=== PATIENT | female | born 1980 | race Caucasian/White ===

== ENCOUNTER 2020-07-13 09:30 | Emergency (ER) | payer OTHER, SELFPAY ==
--- NOTE | ~2020-07-13 | XR_ITS ---
EXAMINATION: XR LUMBAR SPINE CLINICAL INFORMATION: Pain COMPARISON: None TECHNIQUE: Frontal lateral and coned-down L5-S1 frontal lateral FINDINGS: Five [id number] lumbar vertebrae were identified maintaining normal height, there is anterior spondylolisthesis of L5 on S1, there is probably chronic fractures of the pedicle of L5 spondylolysis.. Narrowing of disc spaces L4-L5 and L5-S1 suggests underlying degenerative disc disease. Paravertebral soft tissues are unremarkable. There are radiolucencies, most likely superimposed bowel gas.. No radiographic evidence of osteolytic or osteoblastic lesions. XR/XR lumbar spine 2-3V IMPRESSION: Spondylolysis of the pedicle of L5. Anterior spondylolisthesis of L5 on S1. Narrowing of intervertebral disc spaces suggest underlying degenerative disc disease.
[2020-07-13 09:31] VITALS: BP 193/93; PULSE 78; RESP 18; TEMP 36.9; O2SAT 94; BMI 51.5
[2020-07-13] MEDS: Lidocaine 4 % Patch ADH..PATCH 1 PATCH TRANSDERMA (11:02)
[2020-07-13 11:11] LABS: MANUAL DIFF FLAG NO
[2020-07-13 11:12] LABS: Basophils Absolute Auto 0.1 X10*3/uL (0.0-0.2); Eosinophils Percent Auto 9.1 % (0-4); Imm Gran Abs Auto 0.03 X10*3/uL (0.00-0.03); Imm Gran Pct Auto 0.3 % (0.0-0.4); Lymphocytes Absolute Auto 3.4 X10*3/uL (1.2-4.9); Mean Corpuscular HGB Conc 31.8 g/dl (31.0-35.0); Mean Corpuscular Hemoglobin 29.1 pg (27.0-33.0); Mean Corpuscular Volume 91.5 fL (80-98); Mean Platelet Volume 9.8 fL (9.4-12.3); Monocytes Absolute Auto 0.6 X10*3/uL (0.1-1.2); Monocytes Percent Auto 5.2 % (2-11); Neutrophils Absolute Auto 6.1 X10*3/uL (2.0-8.3); Neutrophils Percent Auto 54.4 % (45-73); Platelet Count 295 X10*3/uL (160-400); Red Blood Count 4.81 X10*6/uL (4.20-5.50); Red Cell Distribution Width 15.3 % (11.0-16.0); White Blood Count 11.2 X10*3/uL (4.8-10.8)
[2020-07-13 11:14] LABS: Glucose Urine UA NEG (NEG); Leukocyte Esterase Urine NEG (NEG); Nitrite Urine NEG (NEG); Specific Gravity - Urine >= 1.030 (1.005-1.025); Urine Blood NEG (NEG); Urine Ketones NEG (NEG); Urine Protein NEG (NEG-TRACE)
[2020-07-13 11:17] LABS: Appearance Urine HAZY; Color Urine YELLOW; UPreg QC Valid YES; Urine Pregnancy NEGATIVE (NEGATIVE)
[2020-07-13 11:21] LABS: RBC Urine 0 /HPF (0); Squamous Epithelial Cell Urine 1+ /LPF; WBC Urine 0 /HPF (0-4)
[2020-07-13 11:30] LABS: Amphetamine Screen Urine Not Detected (Not Detect); Barbiturates, Urine Not Detected (Not Detect); Benzodiazepines Screen Urine Not Detected (Not Detect); Cannabinoid Screen Urine Not Detected (Not Detect); Cocaine Screen Urine Not Detected (Not Detect); Opiate Screen Urine POSITIVE (Not Detect); Phencyclidine Screen Urine Not Detected (Not Detect)
[2020-07-13 11:44] LABS: Alanine Aminotransferase 22 U/L (0-31); Albumin Level 4.3 g/dL (3.5-5.0); Alkaline Phosphatase 102 U/L (39-117); Anion Gap 13 (12-20); Aspartate Amino Transferase 17 U/L (5-31); Bilirubin Total 0.3 mg/dL (0.0-1.0); Blood Urea Nitrogen 9 mg/dL (9-16); Calcium 9.3 mg/dL (8.4-10.2); Carbon Dioxide 33 mmol/L (22-29); Chloride 98 mmol/L (96-108); Creatinine Clr Calc Pharmacy 117.1; Estimated Glomerular Filt Rate > 60; Glucose Random 129 mg/dL (60-115); Potassium 4.5 mmol/L (3.3-5.1); Sodium 139 mmol/L (135-145); Total Protein 7.3 g/dL (6.5-8.0)
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
== END 2020-07-13 12:32 | disposition home or self-care (01) ==
PROVIDERS: Nurse Practitioner Primary Care; Emergency Provider Emergency Medicine; PCP Internal Medicine
DX: S39.012A Strain of muscle, fascia and tendon of lower back, initial encounter (principal); X58.XXXA Exposure to other specified factors, initial encounter; Y93.9 Activity, unspecified; Y92.9 Unspecified place or not applicable; Y99.9 Unspecified external cause status; Z79.899 Other long term (current) drug therapy
CPT/HCPCS: 36415; 72100; 80053; 80307; 81001; 81025; 85025; 99283

== ENCOUNTER 2020-09-20 23:26 | Inpatient (IN) | payer OTHER, SELFPAY ==
--- NOTE | ~2020-09-20 | XR_ITS ---
EXAMINATION: CHEST 1 VIEW CLINICAL INFORMATION: Shortness of breath. COMPARISON: 03/01/2018. TECHNIQUE: An AP view of the chest is provided. FINDINGS: The cardiac silhouette is not enlarged. The mediastinal and hilar contours are unremarkable. There are neither pleural effusions nor pneumothoraces. There are no consolidations. The osseous structures are stable. XR/XR chest 1V IMPRESSION: No evidence for acute disease.
--- NOTE | ~2020-09-20 | CT_ITS ---
EXAMINATION: CT PULMONARY EMBOLISM STUDY CLINICAL INFORMATION: Hypoxia. COMPARISON: None. TECHNIQUE: Contiguous helical images of the chest were obtained following the administration of IV contrast. Multiplanar reconstructions were performed. MIPS were obtained and reviewed. DLP: 524 mGy-cm. CONTRAST: 65 mL of Omnipaque 350 were administered without incident. FINDINGS: The heart is of normal size. There is no pericardial effusion. The great vessels are unremarkable. Specifically, there is no pulmonary arterial filling defect. There is no CT evidence for pulmonary embolism. There are no chest wall masses. Review of lung windows demonstrates that there are neither pleural effusions nor pneumothoraces. There are no consolidations. ((. There are no pulmonary parenchymal nodules. Limited evaluation of the upper abdomen demonstrates that the liver is of normal size and attenuation without focal lesions. Normal adrenal glands are identified. CT/CT angio chest PE protocol IMPRESSION: No CT evidence for pulmonary embolism. Automated exposure control (Care Dose) Adjustment of the mA and/or kv according to patient size (this includes techniques or standardized protocols for targeted exams where dose is matched to indication / reason for exam; i.e. extremities or head).
[2020-09-20 23:32] VITALS: BP 132/80; BP 163/97; PULSE 103; PULSE 105; RESP 20; O2SAT 80; O2SAT 96; BMI 51.5
--- NOTE | 2020-09-20 23:34 | ECG_ITS ---
Test Reason : ASTHMA Blood Pressure : / mmHG Vent. Rate : 101 BPM Atrial Rate : 101 BPM P-R Int : 134 ms QRS Dur : 084 ms QT Int : 342 ms P-R-T Axes : 066 004 046 degrees QTc Int : 443 ms Sinus tachycardia Minimal voltage criteria for LVH, may be normal variant Borderline ECG When compared to the previous EKG of No significant changes seen Referred By: Rona Wilkerson Electronically Signed By:Yandel Shetty
[2020-09-20] MEDS: Albuterol Sulfate (0.083%) 2.5 MG/3 ML VIAL.NEB 10 MG INHALE (23:42)
[2020-09-20 23:43] VITALS: PULSE 90; O2SAT 97
[2020-09-21] VITALS (15 sets, daily range): BP systolic 109–138; BP diastolic 54–77; PULSE 77–104; RESP 10–94; TEMP 36.6; O2SAT 77–98
[2020-09-21 00:08] LABS: Basophils Absolute Auto 0.1 X10*3/uL (0.0-0.2); Basophils Percent Auto 0.5 % (0-2); Eosinophils Absolute Auto 1.7 X10*3/uL (0.0-0.4); Eosinophils Percent Auto 9.6 % (0-4); Hematocrit 42.2 % (37-47); Hemoglobin 13.2 g/dl (12.0-16.0); Imm Gran Abs Auto 0.07 X10*3/uL (0.00-0.03); Imm Gran Pct Auto 0.4 % (0.0-0.4); Lymphocytes Absolute Auto 3.6 X10*3/uL (1.2-4.9); Lymphocytes Percent Auto 20.2 % (20-40); Mean Corpuscular HGB Conc 31.3 g/dl (31.0-35.0); Mean Corpuscular Hemoglobin 29.5 pg (27.0-33.0); Mean Corpuscular Volume 94.2 fL (80-98); Mean Platelet Volume 9.4 fL (9.4-12.3); Monocytes Absolute Auto 0.8 X10*3/uL (0.1-1.2); Monocytes Percent Auto 4.7 % (2-11); Neutrophils Absolute Auto 11.5 X10*3/uL (2.0-8.3); Neutrophils Percent Auto 64.6 % (45-73); Platelet Count 256 X10*3/uL (160-400); Red Blood Count 4.48 X10*6/uL (4.20-5.50); Red Cell Distribution Width 15.1 % (11.0-16.0); White Blood Count 17.7 X10*3/uL (4.8-10.8)
[2020-09-21 00:09] LABS: MANUAL DIFF FLAG NO
[2020-09-21 00:18] LABS: Venous Blood Gas Refer to POC result
[2020-09-21 00:18] LABS: VBG Base Excess 5.7 mmol/L; VBG HCO3 35 mmol/L (22-26); VBG pCO2 73 mmHg; VBG pH 7.28 (7.32-7.43); VBG pO2 174 mmHg
[2020-09-21 00:28] LABS: Lactic Acid 0.7 mmol/L (0.5-2.0)
--- NOTE | 2020-09-21 00:30 | ED.ASTHMA ---
HPI - Asthma General Chief Complaint: Asthma Stated Complaint: sob Time Seen by Provider: 09/20/20 23:34 Source: patient and EMS Mode of arrival: EMS Limitations: no limitations History of Present Illness HPI Narrative: Patient comes emergency room complaining of shortness of breath. Patient states the difficulty breathing started today. Per EMS, patient was 66% on room air at home, she received 1 DuoNeb, oxygen saturation improved to 96%. On arrival to the emergency room, on room air patient saturation was 78% on room air, speaking in short sentences. Patient states that she has asthma, never been diagnosed with COPD. Patient denies taking any steroids or antibiotics recently. MD complaint: asthma attack Related Data Previous Rx's Medication Instructions Recorded cyclobenzaprine 5 mg tablet 5 mg PO BEDTIME PRN 30 Days #30 tab 08/23/20 lidocaine 5 % topical patch 1 patch TOPICAL .q 12H PRN 30 Days 08/23/20 #30 ea albuterol sulfate 90 mcg/actuation 1 puff INHALATION QID PRN 30 Days 09/12/20 aerosol inhaler #18 g naproxen 500 mg tablet 500 mg PO BID PRN #60 tab 09/16/20 ProAir HFA 90 mcg/actuation 1 inh INHALATION QID PRN 30 Days 09/18/20 aerosol inhaler #8.5 g NS Allergies Allergy/AdvReac Type Severity Reaction Status Date / Time No Known Allergies Allergy Verified 08/23/20 15:46 [No Known Allergies*] Review of Systems Review of Systems: Constitutional : No Weight loss, No Fever, No Chills, No Night Sweats, No Fatigue, No Malaise ENT/Mouth : No Hearing loss, No Ear Pain, No Nasal Congestion, No Sinus Pain, No Hoarseness, No sore throat, No Rhinorrhea, No Swallowing Difficulty Eyes: No Eye Pain, No Swelling, No Redness, No Foreign Body, No Discharge, No Vision Changes Cardiovascular : No Chest Pain, no palpitations, has chronic lower extremity edema at baseline Respiratory : Complaining of cough, wheezing, dyspnea Gastrointestinal : No Nausea, No Vomiting, No Diarrhea, No Constipation, No abdominal Pain, No Hematochezia, No Melena Genitourinary : no irregular bleeding, No Dysuria, No Urinary Frequency, No Hematuria, No Urinary Incontinence, No Urgency, No Flank Pain, No Urinary Flow Changes, No Hesitancy Musculoskeletal : No joint pain, No Myalgias, No Joint Swelling Skin : No Skin Lesions, No rash Neuro : No Weakness, No Numbness, No Paresthesias, No Loss of Consciousness, No Dizziness, No Headache Psych : No Anxiety/Panic, No Depression, No SI/HI/AH/VH, No Social Issues, Heme/Lymph: No Bruising, No Bleeding,No Lymphadenopathy Endocrine : No Polyuria, No Polydipsia, No Temperature Intolerance [facility] Past Medical History Medical History (Updated 09/21/20 @ 04:53 by Rona Wilkerson MD) Asthma Chronic back pain Lumbago syndrome Methadone use Social History Social History (Updated 08/23/20 @ 15:48 by Allyssa Valero CMA) Alcohol intake: unknown Smoking Status: Unknown if ever smoked Use of substances other than those prescribed or required for medical reasons: Unknown Advance Directives: No Advance Directives Information Provided: No Physical Exam Vital Signs: Vital Signs: Last Vital Signs Pulse 98 09/21/20 06:29 Resp 12 09/21/20 06:29 BP 138/67 09/21/20 06:29 Pulse Ox 91 L 09/21/20 06:29 Body Mass Index 51.5 Appearance: Alert. Oriented X3. Awny-ym-cwbnilfk respiratory distress, speaking in short sentences Eyes: Pupils equal, round and reactive to light. ENT: Pharynx normal. Neck: Normal inspection. Neck supple. No lymph nodes noted. No crepitus CVS: Normal heart rate and rhythm. Pulses normal. Normal S1 and S2 Respiratory: Hnbv-lq-arntzwnv respiratory distress, wheezing bilaterally, decreased breath sounds bilaterally. Abdomen: Soft and nontender. No rigidity. No distention. Skin: Skin warm and dry. Extremities: +2 bilateral pitting edema at baseline. No Lacerations. No Rash Neuro: Oriented X 3. No motor deficit. No sensory deficit. Moving all extermities. No slurred speech. Course Course Course Narrative: After an hour breathing treatment, Solu-Medrol, magnesium, patient states that she feels much better. However, her oxygen saturation drops to 79% on room air. Venous blood gases show a pCO2 of 73. Patient states she does not have COPD. Patient is a heavy smoker, it is possible that patient has undiagnosed COPD. Patient was treated empirically with antibiotics. Patient's fluid being given based on ideal body weight of 50 kg. At this time sepsis is not suspected Discussed the patient with Dr. Cevallos. Patient remains somnolent but easily arousable. Patient's pCO2 76 on repeat blood gases. Patient likely having underlying COPD. Considering that the patient's oxygen saturation drops to the low 80s without supplemental oxygen, at this time we will also get a chest CT for PE rule out. Patient accepted to the ICU. At 07:15, patient is attempting to leave against medical advice. Patient's oxygen saturation is 82% on room air. Patient is awake and alert x3. After having a prolonged conversation with the patient, patient admitted to stay in the hospital, she is on nasal cannula saturating at 87%, patient requested oral fluids. Until now, patient will be staying. Patient took herself off of BiPAP. Dr. Cevallos has been informed and is on his way in. Pt boarding in the ED, sign out given to Dr. Ríos MDM - Asthma Lab Data Result diagrams: 09/20/20 23:59 09/20/20 23:59 Labs: Lab Results 09/20/20 09/20/20 09/20/20 Range/Units 23:59 23:59 23:59 WBC 17.7 H (4.8-10.8) X10*3/uL RBC 4.48 (4.20-5.50) X10*6/uL Hgb 13.2 (12.0-16.0) g/dl Hct 42.2 (37-47) % MCV 94.2 (80-98) fL MCH 29.5 (27.0-33.0) pg MCHC 31.3 (31.0-35.0) g/dl RDW 15.1 (11.0-16.0) % Plt Count 256 (160-400) X10*3/uL MPV 9.4 (9.4-12.3) fL Immature Gran % (Auto) 0.4 (0.0-0.4) % Neut % (Auto) 64.6 (45-73) % Lymph % (Auto) 20.2 (20-40) % [place] % (Auto) 4.7 (2-11) % Eos % (Auto) 9.6 H (0-4) % Baso % (Auto) 0.5 (0-2) % Lymph # (Auto) 3.6 (1.2-4.9) X10*3/uL [place] # (Auto) 0.8 (0.1-1.2) X10*3/uL Eos # (Auto) 1.7 H (0.0-0.4) X10*3/uL Baso # (Auto) 0.1 (0.0-0.2) X10*3/uL Abs Immat Gran (auto) 0.07 H (0.00-0.03) X10*3/uL Absolute Neuts (auto) 11.5 H (2.0-8.3) X10*3/uL Absolute Nucleated RBC 0.000 (0.0-0.012) X10*3/uL Nucleated RBC % (auto) 0.0 (0.0-0.2) /100WBC VBG pH (7.32-7.43) VBG pCO2 mmHg VBG pO2 mmHg VBG HCO3 (22-26) mmol/L VBG O2 Saturation % VBG Base Excess mmol/L Sodium 139 (135-145) mmol/L Potassium 4.4 (3.3-5.1) mmol/L Chloride 98 (96-108) mmol/L Carbon Dioxide 32 H (22-29) mmol/L Anion Gap 13 (12-20) BUN 20 H D (9-16) mg/dL Creatinine 0.87 (0.5-1.4) mg/dL Estim Creat Clear Calc 117.1 Estimated GFR > 60 Random Glucose 130 H (60-115) mg/dL Lactic Acid (0.5-2.0) mmol/L Calcium 8.8 (8.4-10.2) mg/dL Total Bilirubin < 0.2 (0.0-1.0) mg/dL Direct Bilirubin < 0.2 (0.0-0.5) mg/dL AST 55 H (5-31) U/L ALT 58 H (0-31) U/L Alkaline Phosphatase 113 (39-117) U/L Troponin I High Sens 6.5 (<3.5-17.0) ng/L B-Natriuretic Peptide (<100) pg/mL Total Protein 6.8 (6.5-8.0) g/dL Albumin 3.9 (3.5-5.0) g/dL Coronavirus (PCR) (Negative) Influenza Type A (PCR) (Negative) Influenza Type B (PCR) (Negative) RSV RNA Qual (PCR) (Negative) 09/20/20 09/20/20 09/21/20 Range/Units 23:59 23:59 00:10 WBC (4.8-10.8) X10*3/uL RBC (4.20-5.50) X10*6/uL Hgb (12.0-16.0) g/dl Hct (37-47) % MCV (80-98) fL MCH (27.0-33.0) pg MCHC (31.0-35.0) g/dl RDW (11.0-16.0) % Plt Count (160-400) X10*3/uL MPV (9.4-12.3) fL Immature Gran % (Auto) (0.0-0.4) % Neut % (Auto) (45-73) % Lymph % (Auto) (20-40) % [place] % (Auto) (2-11) % Eos % (Auto) (0-4) % Baso % (Auto) (0-2) % Lymph # (Auto) (1.2-4.9) X10*3/uL [place] # (Auto) (0.1-1.2) X10*3/uL Eos # (Auto) (0.0-0.4) X10*3/uL Baso # (Auto) (0.0-0.2) X10*3/uL Abs Immat Gran (auto) (0.00-0.03) X10*3/uL Absolute Neuts (auto) (2.0-8.3) X10*3/uL Absolute Nucleated RBC (0.0-0.012) X10*3/uL Nucleated RBC % (auto) (0.0-0.2) /100WBC VBG pH 7.28 L (7.32-7.43) VBG pCO2 73 mmHg VBG pO2 174 mmHg VBG HCO3 35 H (22-26) mmol/L VBG O2 Saturation 99.0 % VBG Base Excess 5.7 mmol/L Sodium (135-145) mmol/L Potassium (3.3-5.1) mmol/L Chloride (96-108) mmol/L Carbon Dioxide (22-29) mmol/L Anion Gap (12-20) BUN (9-16) mg/dL Creatinine (0.5-1.4) mg/dL Estim Creat Clear Calc Estimated GFR Random Glucose (60-115) mg/dL Lactic Acid 0.7 (0.5-2.0) mmol/L Calcium (8.4-10.2) mg/dL Total Bilirubin (0.0-1.0) mg/dL Direct Bilirubin (0.0-0.5) mg/dL AST (5-31) U/L ALT (0-31) U/L Alkaline Phosphatase (39-117) U/L Troponin I High Sens (<3.5-17.0) ng/L B-Natriuretic Peptide 44 (<100) pg/mL Total Protein (6.5-8.0) g/dL Albumin (3.5-5.0) g/dL Coronavirus (PCR) (Negative) Influenza Type A (PCR) (Negative) Influenza Type B (PCR) (Negative) RSV RNA Qual (PCR) (Negative) 09/21/20 09/21/20 Range/Units 01:59 03:37 WBC (4.8-10.8) X10*3/uL RBC (4.20-5.50) X10*6/uL Hgb (12.0-16.0) g/dl Hct (37-47) % MCV (80-98) fL MCH (27.0-33.0) pg MCHC (31.0-35.0) g/dl RDW (11.0-16.0) % Plt Count (160-400) X10*3/uL MPV (9.4-12.3) fL Immature Gran % (Auto) (0.0-0.4) % Neut % (Auto) (45-73) % Lymph % (Auto) (20-40) % [place] % (Auto) (2-11) % Eos % (Auto) (0-4) % Baso % (Auto) (0-2) % Lymph # (Auto) (1.2-4.9) X10*3/uL [place] # (Auto) (0.1-1.2) X10*3/uL Eos # (Auto) (0.0-0.4) X10*3/uL Baso # (Auto) (0.0-0.2) X10*3/uL Abs Immat Gran (auto) (0.00-0.03) X10*3/uL Absolute Neuts (auto) (2.0-8.3) X10*3/uL Absolute Nucleated RBC (0.0-0.012) X10*3/uL Nucleated RBC % (auto) (0.0-0.2) /100WBC VBG pH 7.28 L (7.32-7.43) VBG pCO2 76 mmHg VBG pO2 146 mmHg VBG HCO3 36 H (22-26) mmol/L VBG O2 Saturation 99.0 % VBG Base Excess 6.5 mmol/L Sodium (135-145) mmol/L Potassium (3.3-5.1) mmol/L Chloride (96-108) mmol/L Carbon Dioxide (22-29) mmol/L Anion Gap (12-20) BUN (9-16) mg/dL Creatinine (0.5-1.4) mg/dL Estim Creat Clear Calc Estimated GFR Random Glucose (60-115) mg/dL Lactic Acid (0.5-2.0) mmol/L Calcium (8.4-10.2) mg/dL Total Bilirubin (0.0-1.0) mg/dL Direct Bilirubin (0.0-0.5) mg/dL AST (5-31) U/L ALT (0-31) U/L Alkaline Phosphatase (39-117) U/L Troponin I High Sens (<3.5-17.0) ng/L B-Natriuretic Peptide (<100) pg/mL Total Protein (6.5-8.0) g/dL Albumin (3.5-5.0) g/dL Coronavirus (PCR) NEGATIVE (Negative) Influenza Type A (PCR) NEGATIVE (Negative) Influenza Type B (PCR) NEGATIVE (Negative) RSV RNA Qual (PCR) NEGATIVE (Negative) Imaging Data Chest x-ray: Radiologist's impression: The cardiac silhouette is not enlarged. The mediastinal and hilar contours are unremarkable. There are neither pleural effusions nor pneumothoraces. There are no consolidations. The osseous structures are stable. XR/XR chest 1V IMPRESSION: No evidence for acute disease. ECG Data Attestation: I personally reviewed and interpreted this ECG as follows: (Sinus tachycardia, heart rate of 101, next segment depression or elevation, no T-wave inversion, QTC 443) Critical Care Time Critical Care Time Total Critical Care Time: 90 Discharge Plan Discharge Clinical Impression: Acute hypercapnic respiratory failure Asthma exacerbation Qualifiers: Asthma severity: unspecified severity Asthma persistence: unspecified Qualified Code(s): J45.901 - Unspecified asthma with (acute) exacerbation Patient Disposition: Admitted As Inpatient
[2020-09-21 00:37] LABS: Alanine Aminotransferase 58 U/L (0-31); Albumin Level 3.9 g/dL (3.5-5.0); Alkaline Phosphatase 113 U/L (39-117); Anion Gap 13 (12-20); Aspartate Amino Transferase 55 U/L (5-31); Bilirubin Direct < 0.2 mg/dL (0.0-0.5); Bilirubin Total < 0.2 mg/dL (0.0-1.0); Blood Urea Nitrogen 20 mg/dL (9-16); Calcium 8.8 mg/dL (8.4-10.2); Carbon Dioxide 32 mmol/L (22-29); Chloride 98 mmol/L (96-108); Creatinine Clr Calc Pharmacy 117.1; Estimated Glomerular Filt Rate > 60; Glucose Random 130 mg/dL (60-115); Potassium 4.4 mmol/L (3.3-5.1); Sodium 139 mmol/L (135-145); Total Protein 6.8 g/dL (6.5-8.0)
[2020-09-21 00:39] LABS: B Type Natriuretic Peptide 44 pg/mL (<100); Troponin-I High Sensitivity 6.5 ng/L (<3.5-17.0)
[2020-09-21] MEDS: methylPREDNISolone Sod Succ 125 MG/2 ML VIAL IVPUSH (00:53)
[2020-09-21] MEDS: Magnesium Sulfate/H2O 2 GM/50 ML PIGGYBACK IV (00:53)
[2020-09-21] MEDS: 0.9 % Sodium Chloride 1,000 ML 999 ML IVCONT ×2 (02:00→06:37)
[2020-09-21] MEDS: levoFLOXacin/D5W 500 MG/100 ML PIGGYBACK 100 MG IV (02:00)
--- NOTE | 2020-09-21 02:13 | PC.NURSE ---
Patient is lethargic but responsive to loud verbal stimuli. COVID/Flu/RSV swab obtained and sent to lab for analysis. Respiratory therapist (Jose Luis) at bedside. Plan to place patient on BiPAP. Levaquin & Normal Saline infusing as ordered. Pt is diaphoretic. Will continue to monitor.
--- NOTE | 2020-09-21 02:42 | PC.NURSE ---
Placed on BiPAP. 14/6, 5 liters oxygen. Placed on BiPAP by Jose Luis (respiratory therapist). Will continue to monitor.
[2020-09-21 02:51] LABS: Influenza A PCR NEGATIVE (Negative); Influenza B PCR NEGATIVE (Negative); Resp Syncy Virus RNA Qual PCR NEGATIVE (Negative); SARS COV2 PCR INHOUSE NEGATIVE (Negative)
[2020-09-21 03:45] LABS: VBG Base Excess 6.5 mmol/L; VBG HCO3 36 mmol/L (22-26); VBG pCO2 76 mmHg; VBG pH 7.28 (7.32-7.43); VBG pO2 146 mmHg
[2020-09-21 03:46] LABS: Venous Blood Gas Refer to POC result
--- NOTE | 2020-09-21 05:05 | PM.CCHP ---
History of Present Illness Date of Service: 09/21/20 Chief Complaint: Hypoxic/hypercapnic respiratory failure; acute asthma exacerbation HPI: 40-year-old female who is morbidly obese, has underlying history of asthma, presented to the emergency room via EMS with complaints of shortness of breath. According to EMS and upon their arrival, the patient was satting 66% on room air at her house, she received DuoNeb treatment and her oxygenation improved to the mid 90s. On arrival to the ER the patient was setting 78% on room air and speaking in short sentences, the patient is a smoker but has never been diagnosed with COPD, is not steroid or oxygen dependent, has not traveled, has not been in contact with anyone with COVID. In the ER, the patient was hypoxic, head exam revealed some respiratory distress and bilateral wheezing, her workup revealed a white count 73[address], normal H&H, intact electrolytes, a slight bump on the BUN to creatinine ratio, blood gas did reveal low pH and elevated CO2, which was repeated in despite of the patient's treatment these did no improved therefore the patient was placed on BiPAP. COVID 19 negative. Currently in although her troponin and proBNP are normal patient is awaiting to have a CT angiogram. The chest x-ray is negative for infiltrates but she did receive Levaquin due to possibility of an occult infiltrate and the fact that he is a smoker. ROS: UNABLE TO OBTAIN THE PATIENT IS ON BIPAP Past Medical History: Lumbago syndrome Methadone use WANDA not on CPAP at home Leg edema Past Surgical History: Family history: Noncontributory Social History: Lives at home, 1/2 pack per day smoker, no alcohol consumption. CODE STATUS: Full code Allergies: No known drug allergies Home Medications: Please see [facility] rec PHYSICAL EXAM: VS: 122/71, 92, 12, 91% on BiPAP ?General: Alert oriented x3 no acute distress. Following all commands. ?Skin: Intact, no lesions, edema, erythema, clubbing or cyanosis. No ulcers. ?HEENT: Head is normocephalic, atraumatic, pupils equal round reactive to light accommodation bilaterally. Extraocular movements appear intact. Buccal mucosa is moist, Neck is supple without lymphadenopathy. ?Cardiac: Clear S1-S2, no murmurs rubs or gallops. ?Pulmonary: Diminished lung sounds bilaterally with expiratory wheezing bilaterally and throughout, no rales or rhonchi ?Abdomen: Protuberant, positive bowel sounds in all 4 quadrants. Soft, nontender, no rebound or guarding. ?Musculoskeletal: Moving all 4 extremities upon request a major joints, there is no crepitus or tenderness. The strength is 5/5 bilaterally and throughout all 4 extremities. Minimal nonpitting edema at the distal tibias, no calf tenderness, no asymmetry. ?Neurologic: As above, cranial nerves 2-12 are grossly intact. No focal deficits noted. Motor strength as above. Vascular: 2+ pulses upper and lower extremities distally. SIGNIFICANT LABORATORY DATA: As above REVIEW OF IMAGES: CT angiogram pending EKG REVIEW: Not available ASSESSMENT AND PLAN: 1. Hypoxic/hypercarbic respiratory failure (most likely due to asthma exacerbation, rule out PE, early pneumonia, pulmonary hypertension or chronic alveolar hypoventilation, I doubt interstitial lung disease, 2. Acute asthma exacerbation 3. Question early pneumonia 4. Morbid obesity 5. Reactive leukocytosis any eosinophilia most likely allergic in nature 6. Acute kidney injury with BUN to creatinine of 27 due to volume depletion 7. Transaminitis of unclear etiology 8. Respiratory acidosis 9. Methadone User (dose to be confirmed at [facility]) due to LBPain 0. Pickwickian Syndrome Plans to admit to the ICU, monitor vital signs, I's and nose, BiPAP administration repeat blood gas in the morning. Start her on steroids and DuoNeb scheduled, albuterol p.r.n.. CT angiogram to further define whether not there is a pneumonia versus PE. Gentle IV fluids. GI PROPHYLAXIS: IV ppi [facility] Critical care time used for critical evaluation of this patient, diagnosis, treatment and coordination of care, review her records and documentation TOTAL CRITICAL CARE TIME 90 MIN . Patient's care was discussed in detail with Dr. Cevallos. He is aware of all the above as well as the plan of care for this patient. [facility] Past Medical History Medical History (Updated 09/21/20 @ 04:53 by Rona Wilkerson MD) Asthma Chronic back pain Lumbago syndrome Methadone use Social History Social History (Updated 08/23/20 @ 15:48 by Allyssa Valero CMA) Household Members: Family Housing: House Do you presently have visiting nurse or other home services: No Alcohol intake: unknown Smoking Status: Current every day smoker Tobacco Type: Cigarette Packs Per Day: 1 Cigarettes Per Day: 20.0 Smoked in Last 30 Days: Yes Use of substances other than those prescribed or required for medical reasons: Yes Substance Use Type: Heroin Substance Use Frequency: Weekly Last Used Substance: Days (ago) Last Used Substance Other:: 09/19 Currently Displaying Signs/Symptoms of Drug Intoxication Withdrawal: No Have you been hit, kicked, punched, or otherwise hurt by someone within the past year? If so, by whom?: No Do you feel safe in your current relationship?: Yes Is there a partner from a previous relationship who is making you feel unsafe now?: No Are you made to feel afraid or neglected: No Advance Directives: No Advance Directives Information Provided: No Do you have thoughts of harming others: None Do you have a plan to hurt others: No Plan Recently lost weight without trying: No service: No Current occupational status: unemployed Meds Allergies Allergy/AdvReac Type Severity Reaction Status Date / Time No Known Allergies Allergy Verified 08/23/20 15:46 [No Known Allergies*] Active Medications: Current Medications Generic Name Dose Route Start Last Admin Trade Name Freq PRN Reason Stop Dose Admin Albuterol Sulfate 2.5 mg 09/21/20 05:00 Albuterol Sulfate (0.083%) 2.5 Mg/3 Ml Vial.Neb INHALE 09/21/20 13:01 Q4H PRN Wheezing Albuterol/Ipratropium 3 ml 09/21/20 05:00 Albuterol/Iprat 2.5/0.5mg 3 Ml Ampul.Neb INHALE Q6H VIJAY Enoxaparin Sodium 40 mg 09/21/20 05:02 Enoxaparin Sodium 40 Mg/0.4 Ml Syringe SUBCUT 09/21/20 05:03 DAILY ONE Sodium Chloride 1,000 mls @ 999 mls/hr 09/21/20 04:41 Ns IVCONT 09/21/20 05:41 .Q1H1M ONE Methylprednisolone Sodium Succinate 40 mg 09/21/20 05:00 Methylprednisolone Sod Succ 40 Mg/Ml Vial IVPUSH Q6H VIJAY Pantoprazole Sodium 40 mg 09/21/20 05:02 Pantoprazole Sodium 40 Mg/10 Ml Vial IVPUSH 09/21/20 05:03 DAILY ONE Pharmacy Consult 1 each 09/21/20 04:54 Consult Rx Perform Med Rec MISCELLANE ONCE PRN Consult order Physical Exam Vital Signs: Vital Signs: Last Vital Signs Pulse 92 09/21/20 04:00 Resp 12 09/21/20 04:02 BP 122/71 09/21/20 00:50 Pulse Ox 91 L 09/21/20 04:00 Body Mass Index 51.5 Results Labs CBC and Chem 7: 09/21/20 17:03 09/21/20 17:03 Labs: Laboratory Results - last 24 hr 09/20/20 09/20/20 09/20/20 23:59 23:59 23:59 MCV 94.2 MCH 29.5 MCHC 31.3 RDW 15.1 Plt Count 256 MPV 9.4 Immature Gran % (Auto) 0.4 Neut % (Auto) 64.6 Lymph % (Auto) 20.2 [place] % (Auto) 4.7 Eos % (Auto) 9.6 H Baso % (Auto) 0.5 Lymph # (Auto) 3.6 [place] # (Auto) 0.8 Eos # (Auto) 1.7 H Baso # (Auto) 0.1 Abs Immat Gran (auto) 0.07 H Absolute Neuts (auto) 11.5 H Absolute Nucleated RBC 0.000 Nucleated RBC % (auto) 0.0 VBG pH VBG pCO2 VBG pO2 VBG HCO3 VBG O2 Saturation VBG Base Excess Carbon Dioxide 32 H Anion Gap 13 Estim Creat Clear Calc 117.1 Estimated GFR > 60 Random Glucose 130 H Lactic Acid Calcium 8.8 Total Bilirubin < 0.2 Direct Bilirubin < 0.2 AST 55 H ALT 58 H Alkaline Phosphatase 113 Troponin I High Sens 6.5 B-Natriuretic Peptide Total Protein 6.8 Albumin 3.9 Coronavirus (PCR) Influenza Type A (PCR) Influenza Type B (PCR) RSV RNA Qual (PCR) 09/20/20 09/20/20 09/21/20 23:59 23:59 00:10 MCV MCH MCHC RDW Plt Count MPV Immature Gran % (Auto) Neut % (Auto) Lymph % (Auto) [place] % (Auto) Eos % (Auto) Baso % (Auto) Lymph # (Auto) [place] # (Auto) Eos # (Auto) Baso # (Auto) Abs Immat Gran (auto) Absolute Neuts (auto) Absolute Nucleated RBC Nucleated RBC % (auto) VBG pH 7.28 L VBG pCO2 73 VBG pO2 174 VBG HCO3 35 H VBG O2 Saturation 99.0 VBG Base Excess 5.7 Carbon Dioxide Anion Gap Estim Creat Clear Calc Estimated GFR Random Glucose Lactic Acid 0.7 Calcium Total Bilirubin Direct Bilirubin AST ALT Alkaline Phosphatase Troponin I High Sens B-Natriuretic Peptide 44 Total Protein Albumin Coronavirus (PCR) Influenza Type A (PCR) Influenza Type B (PCR) RSV RNA Qual (PCR) 09/21/20 09/21/20 01:59 03:37 MCV MCH MCHC RDW Plt Count MPV Immature Gran % (Auto) Neut % (Auto) Lymph % (Auto) [place] % (Auto) Eos % (Auto) Baso % (Auto) Lymph # (Auto) [place] # (Auto) Eos # (Auto) Baso # (Auto) Abs Immat Gran (auto) Absolute Neuts (auto) Absolute Nucleated RBC Nucleated RBC % (auto) VBG pH 7.28 L VBG pCO2 76 VBG pO2 146 VBG HCO3 36 H VBG O2 Saturation 99.0 VBG Base Excess 6.5 Carbon Dioxide Anion Gap Estim Creat Clear Calc Estimated GFR Random Glucose Lactic Acid Calcium Total Bilirubin Direct Bilirubin AST ALT Alkaline Phosphatase Troponin I High Sens B-Natriuretic Peptide Total Protein Albumin Coronavirus (PCR) NEGATIVE Influenza Type A (PCR) NEGATIVE Influenza Type B (PCR) NEGATIVE RSV RNA Qual (PCR) NEGATIVE Imaging Radiologist's Impressions: Impressions Chest X-Ray 09/20/20 23:34 IMPRESSION: No evidence for acute disease.
[2020-09-21] MEDS: Albuterol/Iprat 2.5/0.5MG 3 ML AMPUL.NEB INHALE ×2 (05:20→17:39)
[2020-09-21] MEDS: iohexoL 350 MG/ML 100 ML INFUS..BTL 65 ML IV (06:18)
--- NOTE | 2020-09-21 06:27 | PC.NURSE ---
Patient out of bed to bathroom with oxygen via nasal cannula. Pt is more alert/oriented, responsive compared to arrival. Respiratory therapist (Jose Luis) present. Urine specimen collected and sent for analysis. Awaiting results. Plan for ICU admission.
[2020-09-21 06:33] LABS: Glucose Urine UA NEG (NEG); Leukocyte Esterase Urine NEG (NEG); Nitrite Urine NEG (NEG); PH 5.5 (5.0-8.0); Specific Gravity - Urine >= 1.030 (1.005-1.025); Urine Blood NEG (NEG); Urine Ketones NEG (NEG); Urine Protein TRACE MG/DL (NEG-TRACE)
[2020-09-21 06:35] LABS: Appearance Urine CLEAR; Color Urine YELLOW; UACC CULT NO
[2020-09-21] MEDS: methylPREDNISolone Sod Succ 40 MG/ML VIAL IVPUSH ×4 (06:37→22:00)
[2020-09-21] MEDS: Enoxaparin Sodium 40 MG/0.4 ML SYRINGE SUBCUT (06:38)
[2020-09-21] MEDS: Pantoprazole Sodium 40 MG/10 ML VIAL IVPUSH (06:38)
[2020-09-21 06:40] LABS: Bacteria Urine 1+ /LPF; Mucus Urine 1+ /LPF; RBC Urine 0 /HPF (0); Squamous Epithelial Cell Urine 2+ /LPF; WBC Urine 0-2 /HPF (0-4)
[2020-09-21 06:41] LABS: Granular Casts Urine 0-2 /LPF
--- NOTE | 2020-09-21 07:33 | PC.NURSE ---
this rn to bedside at shift change, pt found off the monitor and off bipap. pt requesting to leave. md to bedside vitals taken. pt found to be 83% on room air. icu contacted. rt to bedside- pt placed on 6l nc with good effect. 91% on 6l nc. pt given juice per request. pt aware that she cannot leave [facility] at this time d/t hypoxia- discussed in detail with md smith. pt resting comfortably with rt at bedside.
--- NOTE | 2020-09-21 09:05 | PC.NURSE ---
plan for pt to go to [facility] getting info from [facility] for methadone dose.
--- NOTE | 2020-09-21 09:10 | PM.CCPN ---
Subjective Subjective Date of Service: 09/21/20 Interval History: I was called to see Ms. Arden Harrison in the ED bec she was wanting to leave AMA. The patient is a 40 yo F with supermorbid obesity and asthma. The patient also takes methadone 120 mg/day (at [facility]). Serum bicarb in Jul, 2020 was 33 (suggesting chronic CO2 retention). She tells me that at home her oxygen saturation never gets above 94%. Admitted this morning with an asthma exacerbation. Per EMS, patient was 66% on room air at home. She received 1 DuoNeb, oxygen saturation improved to 96% (?FiO2). On arrival to the emergency room, on room air patient saturation was 78% on room air, speaking in short sentences. Bicarb was 32. Trop and BNP normal. CXR was unremarkable. A venous blood gas showed 7.28/73/+6. She was given bronchodilators and steroids. Her venous pCO2 did not improve, therefore she was put on BiPAP, and therefore admitted to the ICU. I was called and suggested a CT angio because of her unexplained hypoxemia. The CT angio was negative for pulmonary embolism. Furthermore, the lung adhikari showed no infiltrate, pulmonary artery size looks normal, and right ventricular size and RV:LV cavity ratio are also probably. On my exam at 8am in the ED, she is sitting up over the side of the gurney, breathing easy, and looking entire well (relatively speaking), talking easily. Sat 88% on room air, improved to 90% on 1LNC. No JVD. Chest CTA with no wheezes or rhonchi, normal exp phase. RRR, normal S1 and S2, no murmurs or gallops. She asked me for her methadone and a nicotine patch. I negotiated with her to stay one day in the hospital. IMPRESSION: 1. Super morbid obesity. I suspect this is the large part of her problem. 2. Asthma exacerbation. Usual management with steroids and bronchodilators. I would also give her Zithromax 250 mg p.o. x5 days. 3. Opiate dependence. I have called [facility] to verify her methadone dose. 4. Tobacco abuse. Agree with the nicotine patch. I have discussed the patient's situation with Amanda Lane, and the patient will be transferred to a regular room on the medicine service. Time: 60 min ([id number]) Physical Exam Vital Signs: Vital Signs: Last Vital Signs Pulse 98 09/21/20 06:29 Resp 12 09/21/20 06:29 BP 138/67 09/21/20 06:29 Pulse Ox 91 L 09/21/20 06:29 Body Mass Index 51.5 Objective Data Labs CBC & Chem 7: 09/20/20 23:59 09/20/20 23:59 Labs: Laboratory Results - last 24 hr 09/20/20 09/20/20 09/20/20 23:59 23:59 23:59 WBC 17.7 H RBC 4.48 Hgb 13.2 Hct 42.2 MCV 94.2 MCH 29.5 MCHC 31.3 RDW 15.1 Plt Count 256 MPV 9.4 Immature Gran % (Auto) 0.4 Neut % (Auto) 64.6 Lymph % (Auto) 20.2 [place] % (Auto) 4.7 Eos % (Auto) 9.6 H Baso % (Auto) 0.5 Lymph # (Auto) 3.6 Terry # (Auto) 0.8 Eos # (Auto) 1.7 H Baso # (Auto) 0.1 Abs Immat Gran (auto) 0.07 H Absolute Neuts (auto) 11.5 H Absolute Nucleated RBC 0.000 Nucleated RBC % (auto) 0.0 VBG pH VBG pCO2 VBG pO2 VBG HCO3 VBG O2 Saturation VBG Base Excess Sodium 139 Potassium 4.4 Chloride 98 Carbon Dioxide 32 H Anion Gap 13 BUN 20 H D Creatinine 0.87 Estim Creat Clear Calc 117.1 Estimated GFR > 60 Random Glucose 130 H Lactic Acid Calcium 8.8 Total Bilirubin < 0.2 Direct Bilirubin < 0.2 AST 55 H ALT 58 H Alkaline Phosphatase 113 Troponin I High Sens 6.5 B-Natriuretic Peptide Total Protein 6.8 Albumin 3.9 Urine Color Urine Appearance Urine pH Ur Specific [place] Urine Protein Urine Glucose (UA) Urine Ketones Urine Blood Urine Nitrite Ur Leukocyte Esterase Urine RBC Urine WBC Ur Squamous Epith Cells Urine Bacteria Granular Casts Urine Mucus Coronavirus (PCR) Influenza Type A (PCR) Influenza Type B (PCR) RSV RNA Qual (PCR) 09/20/20 09/20/20 09/21/20 23:59 23:59 00:10 WBC RBC Hgb Hct MCV MCH MCHC RDW Plt Count MPV Immature Gran % (Auto) Neut % (Auto) Lymph % (Auto) Terry % (Auto) Eos % (Auto) Baso % (Auto) Lymph # (Auto) Terry # (Auto) Eos # (Auto) Baso # (Auto) Abs Immat Gran (auto) Absolute Neuts (auto) Absolute Nucleated RBC Nucleated RBC % (auto) VBG pH 7.28 L VBG pCO2 73 VBG pO2 174 VBG HCO3 35 H VBG O2 Saturation 99.0 VBG Base Excess 5.7 Sodium Potassium Chloride Carbon Dioxide Anion Gap BUN Creatinine Estim Creat Clear Calc Estimated GFR Random Glucose Lactic Acid 0.7 Calcium Total Bilirubin Direct Bilirubin AST ALT Alkaline Phosphatase Troponin I High Sens B-Natriuretic Peptide 44 Total Protein Albumin Urine Color Urine Appearance Urine pH Ur Specific [place] Urine Protein Urine Glucose (UA) Urine Ketones Urine Blood Urine Nitrite Ur Leukocyte Esterase Urine RBC Urine WBC Ur Squamous Epith Cells Urine Bacteria Granular Casts Urine Mucus Coronavirus (PCR) Influenza Type A (PCR) Influenza Type B (PCR) RSV RNA Qual (PCR) 09/21/20 09/21/20 09/21/20 01:59 03:37 06:20 WBC RBC Hgb Hct MCV MCH MCHC RDW Plt Count MPV Immature Gran % (Auto) Neut % (Auto) Lymph % (Auto) [place] % (Auto) Eos % (Auto) Baso % (Auto) Lymph # (Auto) Terry # (Auto) Eos # (Auto) Baso # (Auto) Abs Immat Gran (auto) Absolute Neuts (auto) Absolute Nucleated RBC Nucleated RBC % (auto) VBG pH 7.28 L VBG pCO2 76 VBG pO2 146 VBG HCO3 36 H VBG O2 Saturation 99.0 VBG Base Excess 6.5 Sodium Potassium Chloride Carbon Dioxide Anion Gap BUN Creatinine Estim Creat Clear Calc Estimated GFR Random Glucose Lactic Acid Calcium Total Bilirubin Direct Bilirubin AST ALT Alkaline Phosphatase Troponin I High Sens B-Natriuretic Peptide Total Protein Albumin Urine Color YELLOW Urine Appearance CLEAR Urine pH 5.5 Ur Specific [place] >= 1.030 H Urine Protein TRACE Urine Glucose (UA) NEG Urine Ketones NEG Urine Blood NEG Urine Nitrite NEG Ur Leukocyte Esterase NEG Urine RBC 0 Urine WBC 0-2 Ur Squamous Epith Cells 2+ Urine Bacteria 1+ Granular Casts 0-2 Urine Mucus 1+ Coronavirus (PCR) NEGATIVE Influenza Type A (PCR) NEGATIVE Influenza Type B (PCR) NEGATIVE RSV RNA Qual (PCR) NEGATIVE
--- NOTE | 2020-09-21 09:13 | MHC.RECOVSUP ---
Recovery Support note: This literary writer assisted ED Staff with the confirmation of patient's methadone dose. Fax with release sent to [place] and confirmation received.
[2020-09-21] MEDS: Nicotine 14 MG PATCH.TD24 TRANSDERMA (10:12)
[2020-09-21] MEDS: Azithromycin 250 MG TABLET PO (10:12)
--- NOTE | 2020-09-21 10:23 | PC.NURSE ---
medicated per emar. pt was sleeping comfortably in bed vss. no distress noted.
--- NOTE | 2020-09-21 11:05 | MHC.CM.ED ---
CM met with patient who reports she is independent, her 2 sons live with her and is very supportive. Patient is unemployed and drives. Patient has COPD, asthma, smoker and O2 dependent. Patient does not have a HCP and declines filling one out today after education. Discussed discharge plan, home no services. Son will provide transport home. CM will continue to follow patient for discharge needs.
--- NOTE | 2020-09-21 13:32 | PC.NURSE ---
pt sleeping in bed at this time. resp even and unlabored. compliant with nc at this time.
[2020-09-21] MEDS: Albuterol Sulfate (0.083%) 2.5 MG/3 ML VIAL.NEB INHALE (14:26)
[2020-09-21] MEDS: Lidocaine 4 % Patch ADH..PATCH 1 PATCH TRANSDERMA (15:34)
[2020-09-21 17:09] LABS: MANUAL DIFF FLAG NO
[2020-09-21 17:11] LABS: Venous Blood Gas Refer to POC result
[2020-09-21 17:12] LABS: VBG Base Excess 9.4 mmol/L; VBG HCO3 36 mmol/L (22-26); VBG pCO2 59 mmHg; VBG pH 7.39 (7.32-7.43); VBG pO2 99 mmHg
[2020-09-21 17:14] LABS: Basophils Percent Auto 0.1 % (0-2); Hematocrit 40.8 % (37-47); Hemoglobin 12.9 g/dl (12.0-16.0); Imm Gran Pct Auto 0.7 % (0.0-0.4); Lymphocytes Absolute Auto 1.3 X10*3/uL (1.2-4.9); Lymphocytes Percent Auto 8.6 % (20-40); Mean Corpuscular HGB Conc 31.6 g/dl (31.0-35.0); Mean Corpuscular Hemoglobin 29.6 pg (27.0-33.0); Mean Corpuscular Volume 93.6 fL (80-98); Mean Platelet Volume 9.6 fL (9.4-12.3); Monocytes Absolute Auto 0.7 X10*3/uL (0.1-1.2); Monocytes Percent Auto 4.9 % (2-11); Neutrophils Absolute Auto 13.1 X10*3/uL (2.0-8.3); Neutrophils Percent Auto 85.7 % (45-73); Platelet Count 228 X10*3/uL (160-400); Red Blood Count 4.36 X10*6/uL (4.20-5.50); Red Cell Distribution Width 15.2 % (11.0-16.0); White Blood Count 15.3 X10*3/uL (4.8-10.8)
--- NOTE | 2020-09-21 17:17 | PC.NURSE ---
s3 states they will call back for report
[2020-09-21 17:36] LABS: Anion Gap 12 (12-20); Blood Urea Nitrogen 16 mg/dL (9-16); Calcium 8.9 mg/dL (8.4-10.2); Carbon Dioxide 33 mmol/L (22-29); Chloride 98 mmol/L (96-108); Creatinine Clr Calc Pharmacy 137.8; Estimated Glomerular Filt Rate > 60; Glucose Fasting 117 mg/dL (60-99); Potassium 5.1 mmol/L (3.3-5.1); Sodium 138 mmol/L (135-145)
--- NOTE | 2020-09-21 17:52 | PC.NURSE ---
report given to september on med surg
[2020-09-22] VITALS: BP 146/68; PULSE 86; RESP 20; TEMP 36.7; O2SAT 94; BMI 52.2
[2020-09-22] MEDS: NaPROXEN 500 MG TABLET PO (00:12)
[2020-09-22] MEDS: Albuterol/Iprat 2.5/0.5MG 3 ML AMPUL.NEB INHALE ×2 (00:18→10:20)
[2020-09-22 03:46] VITALS: BP 132/82; PULSE 79; RESP 20; TEMP 36.6; O2SAT 94
[2020-09-22] MEDS: methylPREDNISolone Sod Succ 40 MG/ML VIAL IVPUSH ×2 (05:26→10:44)
[2020-09-22 07:52] VITALS: BP 166/91; PULSE 114; RESP 20; TEMP 36.1; O2SAT 92
[2020-09-22 08:00] VITALS: BMI 51.8
[2020-09-22] MEDS: Lidocaine 4 % Patch ADH..PATCH 1 PATCH TRANSDERMA (08:53)
[2020-09-22] MEDS: Nicotine 14 MG PATCH.TD24 TRANSDERMA (08:54)
[2020-09-22 08:55] VITALS: O2SAT 91
[2020-09-22] MEDS: Azithromycin 250 MG TABLET PO (08:55)
--- NOTE | 2020-09-22 10:01 | PM.DS ---
DS: Providers Provider Date of Service: 09/22/20 Date of admission: 09/21/20 15:05 Primary care physician: Monty Russell MD DS: Diagnosis Discharge Diagnosis (1) Acute hypercapnic respiratory failure: Status: Acute (2) Asthma exacerbation: Status: Acute DS: Medications Discharge Medications Home Medications: Previous Rx's Medication Instructions Recorded cyclobenzaprine 5 mg tablet 5 mg PO BEDTIME PRN 30 Days #30 tab 08/23/20 lidocaine 5 % topical patch 1 patch TOPICAL .q 12H PRN 30 Days 08/23/20 #30 ea albuterol sulfate 90 mcg/actuation 1 puff INHALATION QID PRN 30 Days 09/12/20 aerosol inhaler #18 g naproxen 500 mg tablet 500 mg PO BID PRN #60 tab 09/16/20 ProAir HFA 90 mcg/actuation 1 inh INHALATION QID PRN 30 Days 09/18/20 aerosol inhaler #8.5 g NS azithromycin 250 mg PO Q24H #3 tab 09/22/20 nicotine [Nicoderm CQ] 1 patch TRANSDERMAL DAILY #14 ea 09/22/20 prednisone 40 mg PO DAILY #10 tab 09/22/20 DS: Summary Hospital Course Hospital Course: patient was initially admitted to the ICU for acute hypoxic and hypercapneic respiratory failure due to asthma exacerbation. she was treated with NIPPV and steroids and hypercapnea quickly resolved. patient was able to be taken off NIPPV and continued treatement on the medical floor. she was then able to be weaned off oxygen. her symptoms of shortness of breath significantly improved and she ambulated well on room air without desaturation. she will be discharged home on prednisone and azithromycin. she was advised to quit smoking and will be prescribed nicoderm. Time Spent with Patient Time attestation: Total time spent providing and/or coordinating discharge services: Discharge coordination time: Greater than 30 minutes Physical Exam Vital Signs: Vital Signs: Last Vital Signs Temp 97.0 F 09/22/20 07:52 Pulse 114 H 09/22/20 07:52 Resp 20 09/22/20 07:52 BP 166/91 H 09/22/20 07:52 Pulse Ox 91 L 09/22/20 08:55 Body Mass Index 51.8 General: AO X 3, no acute distress Resp: wheezes CVS: S1,S2,RRR GI: soft, non tender, non distended Neuro: motor grossly intact Psych: appropriate affect DS: Data Data Completed and Pending Labs on day of discharge: Laboratory Results - last 24 hr 09/21/20 09/21/20 09/21/20 17:03 17:03 17:05 WBC 15.3 H RBC 4.36 Hgb 12.9 Hct 40.8 MCV 93.6 MCH 29.6 MCHC 31.6 RDW 15.2 Plt Count 228 MPV 9.6 Immature Gran % (Auto) 0.7 H Neut % (Auto) 85.7 H Lymph % (Auto) 8.6 L [place] % (Auto) 4.9 Eos % (Auto) 0.0 Baso % (Auto) 0.1 Lymph # (Auto) 1.3 [place] # (Auto) 0.7 Eos # (Auto) 0.0 Baso # (Auto) 0.0 Abs Immat Gran (auto) 0.10 H Absolute Neuts (auto) 13.1 H Absolute Nucleated RBC 0.000 Nucleated RBC % (auto) 0.0 VBG pH 7.39 VBG pCO2 59 VBG pO2 99 VBG HCO3 36 H VBG O2 Saturation 98.0 VBG Base Excess 9.4 Sodium 138 Potassium 5.1 Chloride 98 Carbon Dioxide 33 H Anion Gap 12 BUN 16 Creatinine 0.74 Estim Creat Clear Calc 137.8 Estimated GFR > 60 Fasting Glucose 117 H Calcium 8.9 Preliminary micro results at discharge 09/21/20 00:03 Blood Culture - Preliminary Blood - Venous No growth after 24 hours. 09/21/20 00:03 Blood Culture - Preliminary Blood - Venous No growth after 24 hours. Discharge Plan Discharge Patient Disposition: Home, Self-Care Discharge Diagnosis: asthma Referrals: Monty Russell MD [Primary Care Provider] - 1 Week Discharge Medications: New azithromycin 250 mg Tablet 250 mg PO Q24H Qty: 3 RF: 0 prednisone 20 mg tablet 40 mg PO DAILY Qty: 10 RF: 0 nicotine [Nicoderm CQ] 21 mg/24 hr patch 24 hour 1 patch transdermal DAILY Qty: 14 RF: 0 Continued albuterol sulfate 90 mcg/actuation HFA aerosol inhaler 1 puff inhalation QID PRN (Reason: bronchospasm) 30 Days Qty: 18 RF: 5 naproxen [Naprosyn] 500 mg tablet 500 mg PO BID PRN (Reason: pain) Qty: 60 RF: 0 albuterol sulfate [ProAir HFA] 90 mcg/actuation HFA aerosol inhaler 1 inh inhalation QID PRN (Reason: shortness of breath or wheezing) 30 Days Qty: 8.5 RF: 5 lidocaine 5 % adhesive patch,medicated 1 patch topical .q 12H PRN (Reason: low back pain) 30 Days Qty: 30 RF: 0 cyclobenzaprine 5 mg tablet 5 mg PO BEDTIME PRN (Reason: muscle spasm) 30 Days Qty: 30 RF: 0 Discharge Orders: Discharge Order (Routine); Ordered 09/22/20 Ordered By: [place] Activity on Discharge: As tolerated Stand Alone Forms: Patient Portal Discharge page Care Plan Goals: recovery Health Concerns: asthma Plan of Treatment: prednisone, azithromycin, monitor oxygen and come back if under 90, quit smoking Assessment: see above
--- NOTE | 2020-09-22 10:11 | MHC.CM.PN ---
PT CLEARED TO DC HOME TODAY WITH RESUMPTION OF HER OUTPATIENT METHADONE MAINTENANCE THERAPY VIA [facility]. PT TO SELF ARRANGE TRANSPORT.
[2020-09-22 10:23] VITALS: PULSE 81; O2SAT 98
--- NOTE | 2020-09-22 11:21 | MHC.CM.PN ---
D/C order for home, self care, no services ordered. Patient to D/C to home today.
[2021-01-21 08:08] LABS: VBG Base Excess 7.3 mmol/L; VBG HCO3 37 mmol/L (22-26); VBG pCO2 81 mmHg; VBG pH 7.27 (7.32-7.43); VBG pO2 128 mmHg
== END 2020-09-22 12:40 | disposition home or self-care (01) | DRG 141 ==
LOC: HO.ED 09-21 14:48 → HO.EDOVER 09-21 15:06 → HO.S3 09-21 17:11
PROVIDERS: Physician Assistant Medical; Admitting Provider Internal Medicine; Emergency Provider Emergency Medicine; PCP Internal Medicine; Visit Provider Internal Medicine
DX: J45.901 Unspecified asthma with (acute) exacerbation (principal); J96.02 Acute respiratory failure with hypercapnia; N17.9 Acute kidney failure, unspecified; F11.20 Opioid dependence, uncomplicated; Z68.43 Body mass index [BMI] 50.0-59.9, adult; E66.2 Morbid (severe) obesity with alveolar hypoventilation; D72.829 Elevated white blood cell count, unspecified; G89.29 Other chronic pain; Z20.822 Contact with and (suspected) exposure to COVID-19; Z71.6 Tobacco abuse counseling; Z79.899 Other long term (current) drug therapy
CPT/HCPCS: 0241U; 36415; 71045; 71275; 80048; 80076; 81001; 82803; 83605; 83880; 84484; 85025; 87040; 93005; 94640; 94644; 94660; 96365; 96366; 96367; 96375; 99285; 99291; 99292; J1650; J1956; J2920; J2930; J3475; Q9967

== ENCOUNTER 2020-12-29 16:53 | Emergency (ER) | payer OTHER, SELFPAY ==
--- NOTE | ~2020-12-29 | XR_ITS ---
EXAMINATION: XR CHEST CLINICAL INFORMATION: Shortness of breath COMPARISON: 09/21/2020 TECHNIQUE: Frontal view of the chest was obtained. FINDINGS: Lung volumes are low. Mild chronic coarse interstitial prominence. No focal consolidation or mass. No pleural effusion or pneumothorax. Normal heart size. No acute or suspicious osseous abnormality. XR/XR chest 1V IMPRESSION: No acute pulmonary disease. No significant change from prior study.
--- NOTE | ~2020-12-29 | CT_ITS ---
EXAMINATION: CT ANGIOGRAM OF THE CHEST WITH AND WITHOUT CONTRAST (CT PULMONARY ANGIOGRAM FOR PE) CLINICAL INFORMATION: Reason for Exam sob, hypoxia COMPARISON: 09/21/2020 TECHNIQUE: Prior to contrast administration, noncontrast localization images were obtained. Subsequently, multidetector volumetric imaging was performed from the thoracic inlet to below the diaphragms following the administration of 75 mL Omnipaque 350 intravenous contrast. No contrast reaction reported Sagittal, coronal, and MIP oblique sagittal reformatted images were obtained on the CT workstation, uploaded to PACS, and reviewed. This CT examination was performed using dose optimization techniques as appropriate, variously including the following: *Automated exposure control *Adjustment of mA and/or kV according to patient size (this includes techniques or standardized protocols for targeted exams where dose is matched to indication/reason for exam; i.e. extremities or head) *Use of iterative reconstruction technique Total exam dose-length product 689 mGy-cm FINDINGS: QUALITY OF STUDY/CONTRAST BOLUS: Satisfactory. PULMONARY ARTERIES: No convincing central or segmental pulmonary emboli. Limited assessment of distal vessels due to bolus timing. THORACIC AORTA: No aneurysm or dissection. LUNG: Mild subsegmental atelectasis bilaterally without additional consolidation. PLEURA: No pleural effusion or pneumothorax. MEDIASTINUM: The visualized thyroid gland is unremarkable. There are subcentimeter mediastinal lymph nodes within the range of normal variation. Cardiac size is within normal limits; no pericardial effusion. CHEST WALL/AXILLA: No axillary or internal mammary lymphadenopathy. OSSEOUS STRUCTURES: No acute or suspicious osseous abnormality. UPPER ABDOMEN: The liver demonstrates hypoattenuation suspicious for steatosis. No reflux of contrast into the hepatic veins to suggest elevated right heart pressures. CT/CT angio chest PE protocol IMPRESSION: No pulmonary embolus identified. Limited evaluation of the distal vasculature due to bolus timing. VTE: negative
[2020-12-29 18:01] VITALS: BP 159/78; PULSE 84; RESP 20; TEMP 36.5; O2SAT 87; BMI 51.5
[2020-12-29 19:00] LABS: MANUAL DIFF FLAG NO
[2020-12-29 19:01] LABS: Basophils Absolute Auto 0.1 X10*3/uL (0.0-0.2); Basophils Percent Auto 0.4 % (0-2); Eosinophils Absolute Auto 1.2 X10*3/uL (0.0-0.4); Eosinophils Percent Auto 9.4 % (0-4); Hematocrit 40.3 % (37-47); Hemoglobin 12.6 g/dl (12.0-16.0); Imm Gran Abs Auto 0.04 X10*3/uL (0.00-0.03); Imm Gran Pct Auto 0.3 % (0.0-0.4); Lymphocytes Absolute Auto 3.2 X10*3/uL (1.2-4.9); Lymphocytes Percent Auto 24.4 % (20-40); Mean Corpuscular HGB Conc 31.3 g/dl (31.0-35.0); Mean Corpuscular Hemoglobin 30.1 pg (27.0-33.0); Mean Corpuscular Volume 96.4 fL (80-98); Mean Platelet Volume 9.6 fL (9.4-12.3); Monocytes Absolute Auto 0.8 X10*3/uL (0.1-1.2); Monocytes Percent Auto 5.7 % (2-11); Neutrophils Absolute Auto 7.9 X10*3/uL (2.0-8.3); Neutrophils Percent Auto 59.8 % (45-73); Platelet Count 273 X10*3/uL (160-400); Red Blood Count 4.18 X10*6/uL (4.20-5.50); Red Cell Distribution Width 15.5 % (11.0-16.0); White Blood Count 13.1 X10*3/uL (4.8-10.8)
[2020-12-29 19:22] LABS: Anion Gap 11 (12-20); Blood Urea Nitrogen 14 mg/dL (9-16); Calcium 9.2 mg/dL (8.4-10.2); Carbon Dioxide 34 mmol/L (22-29); Chloride 100 mmol/L (96-108); Creatinine Clr Calc Pharmacy 134.1; Estimated Glomerular Filt Rate > 60; Glucose Random 101 mg/dL (60-115); Potassium 4.3 mmol/L (3.3-5.1); Sodium 141 mmol/L (135-145)
--- NOTE | 2020-12-29 19:29 | ED.SKABFB ---
HPI - Skin/Abscess/Foreign Bdy General Chief complaint: Skin/Abscess/Foreign Body Stated complaint: leg infection Time Seen by Provider: 12/29/20 22:18 Source: patient Mode of arrival: ambulatory Limitations: no limitations History of Present Illness HPI narrative: 40-year-old female with asthma, morbid obesity, lumbago, on methadone, presents with cellulitis to the right lower leg and hypoxia. States that she has always had shortness of breath and wheezing, she does smoke at least 1 pack of cigarettes per day. She stated that she bumped her leg on a box a few days ago, noticed a wound that was weeping purulent drainage. She noted some redness and some pain, and reports intermittent fevers and chills. She did not report any chest pain or pressure, palpitations, abdominal pain, abdominal distention, dysuria, hematuria, nausea, vomiting, diarrhea, or weakness. MD complaint: abscess/boil Onset (ago): day(s) Tetanus up to date: yes Location: R[facility] Severity: moderate Severity scale (1-10): 6 Quality: aching Pain Consistency: constant Relieving factors: none Exacerbating factors: palpation and movement Associated symptoms: shortness of breath Treatments prior to arrival: none Related Data Previous Rx's Medication Instructions Recorded albuterol sulfate 90 mcg/actuation 1 puff INHALATION QID PRN 30 Days 09/12/20 aerosol inhaler #18 g ProAir HFA 90 mcg/actuation 1 inh INHALATION QID PRN 30 Days 09/18/20 aerosol inhaler #8.5 g NS azithromycin 250 mg PO Q24H #3 tab 09/22/20 nicotine [Nicoderm CQ] 1 patch TRANSDERMAL DAILY #14 ea 09/22/20 prednisone 40 mg PO DAILY #10 tab 09/22/20 cyclobenzaprine 5 mg tablet 5 mg PO BEDTIME PRN 30 Days #30 tab 10/04/20 lidocaine 5 % topical patch 1 patch TOPICAL .q 12H PRN 30 Days 10/04/20 #30 ea naproxen 500 mg tablet 500 mg PO BID PRN #60 tab 10/11/20 cefuroxime axetil 500 mg PO Q12H 10 Days #20 tab 12/29/20 doxycycline monohydrate 100 mg PO BID 10 Days #20 tab 12/29/20 Allergies Allergy/AdvReac Type Severity Reaction Status Date / Time No Known Allergies Allergy Verified 08/23/20 15:46 [No Known Allergies*] Review of Systems Review of Systems: Constitutional: Positive Fever, positive Chills ENT/Mouth: No Ear Pain, No Hoarseness, No sore throat Eyes: No Eye Pain, No Swelling, No Redness, No Foreign Body Cardiovascular: No Chest Pain, positive SOB Respiratory: Positive Cough, No Dyspnea Gastrointestinal: No Nausea, No Vomiting, No Diarrhea, No abdominal Pain Genitourinary: No Dysuria, No Hematuria Musculoskeletal: positive right lower extremity pain, No Myalgias, No Joint Swelling Skin: Positive weeping wound, No Skin lacerations, No rash Neuro: No Weakness, No Numbness, No Paresthesias, No Loss of Consciousness, No Dizziness, No Headache Psych: No Anxiety/Panic, No Depression Heme/Lymph: no easy bruising, no Lymphadenopathy Endocrine: No Polyuria, No Polydipsia Yes all other systems are reviewed and are negative PMFSH Past Medical History Attestation statement: The following information was validated with the patient. Source: old records reviewed Medical History Asthma Chronic back pain Lumbago syndrome Methadone use Social History Social History Household Members: Family Housing: House Do you presently have visiting nurse or other home services: No Alcohol intake: unknown Cigarette Packs Per Day: 1 Cigarettes Per Day: 20.0 Substance Use Type: Heroin Advance Directives: No Advance Directives Information Provided: Yes Patient : No service: No Current occupational status: unemployed Physical Exam Vital Signs: Vital Signs: Last Vital Signs Temp 97.7 F 12/29/20 18:01 Pulse 91 12/29/20 20:44 Resp 14 12/29/20 20:44 BP 122/60 12/29/20 20:47 Pulse Ox 99 12/29/20 20:47 Body Mass Index 51.5 Appearance: Alert. Oriented X3. Moderate distress. Head: Normal external exam. Normocephalic. Atraumatic. Eyes: PERRLA. EOMI. Conjunctiva and sclera normal. Eyelids normal. ENT: TM's Normal. Pharynx normal. Uvula midline. Moist mucous membranes. Neck: Normal inspection. Neck supple. CVS: Normal heart rate and rhythm. Heart sound normal. No murmurs noted. Pulses equal to all extremities. Respiratory: Mild respiratory distress. Hypoxic upon arrival. Painless inspiration. Coarse lungs throughout. Chest nontender. No accessory muscle usage noted or decreased air movement noted. Abdomen: Soft and nontender. Morbidly obese. Bowel sounds normal in all 4 quadrants. Back: No CVA tenderness. Full range of motion noted. Skin: 2 cm x 4 cm martinez macerated area with malodorous drainage, cellulitis to bilateral lower extremities greater on the right than the left Extremities: Bilateral lower extremity pitting edema. Extremities exhibit normal range of motion. Extremities nontender. Neuro: cranial nerves 2-12 intact, no focal neural deficits, strength 5/5 to all extremities, No motor deficit. No sensory deficit. Reflexes normal. Course Course Course Narrative: 40-year-old female presents with cellulitis, purulent drainage from a wound on the right lower extremity, and hypoxia with shortness of breath and adventitious lung sounds. Will order ceftriaxone, vancomycin, labs, lactic and cultures. She does state to have intermittent fevers. White count 13.1. Cultures are pending. I did discuss this case with the hospitalist, patient will be admitted for cellulitis and hypoxia. Patient decided that she did not want to stay in the hospital, and is leaving against medical advice. Discussed with hospitalist. Consultations Consultation #1: marguerite MDM - Skin/Abscess/Foreign Bdy MDM Narrative Medical decision making narrative: Pneumonia, PE Differential Diagnosis Differential diagnosis: Likely abscess of skin or subcutaneous tissue and cellulitis Medical Records Attestation: I reviewed the patient's medical records. Lab Data Attestation: I reviewed the patient's lab results. Result diagrams: 12/29/20 18:48 12/29/20 18:48 Labs: Lab Results 12/29/20 12/29/20 12/29/20 Range/Units 18:48 18:48 19:41 WBC 13.1 H (4.8-10.8) X10*3/uL RBC 4.18 L (4.20-5.50) X10*6/uL Hgb 12.6 (12.0-16.0) g/dl Hct 40.3 (37-47) % MCV 96.4 (80-98) fL MCH 30.1 (27.0-33.0) pg MCHC 31.3 (31.0-35.0) g/dl RDW 15.5 (11.0-16.0) % Plt Count 273 (160-400) X10*3/uL MPV 9.6 (9.4-12.3) fL Immature Gran % (Auto) 0.3 (0.0-0.4) % Neut % (Auto) 59.8 (45-73) % Lymph % (Auto) 24.4 (20-40) % [place] % (Auto) 5.7 (2-11) % Eos % (Auto) 9.4 H (0-4) % Baso % (Auto) 0.4 (0-2) % Lymph # (Auto) 3.2 (1.2-4.9) X10*3/uL [place] # (Auto) 0.8 (0.1-1.2) X10*3/uL Eos # (Auto) 1.2 H (0.0-0.4) X10*3/uL Baso # (Auto) 0.1 (0.0-0.2) X10*3/uL Abs Immat Gran (auto) 0.04 H (0.00-0.03) X10*3/uL Absolute Neuts (auto) 7.9 (2.0-8.3) X10*3/uL Absolute Nucleated RBC 0.000 (0.0-0.012) X10*3/uL Nucleated RBC % (auto) 0.0 (0.0-0.2) /100WBC Sodium 141 (135-145) mmol/L Potassium 4.3 (3.3-5.1) mmol/L Chloride 100 (96-108) mmol/L Carbon Dioxide 34 H (22-29) mmol/L Anion Gap 11 L (12-20) BUN 14 (9-16) mg/dL Creatinine 0.76 (0.5-1.4) mg/dL Estim Creat Clear Calc 134.1 Estimated GFR > 60 Random Glucose 101 (60-115) mg/dL Lactic Acid 0.9 (0.5-2.0) mmol/L Calcium 9.2 (8.4-10.2) mg/dL Troponin I High Sens (<3.5-17.0) ng/L B-Natriuretic Peptide (<100) pg/mL 12/29/20 Range/Units 22:28 WBC (4.8-10.8) X10*3/uL RBC (4.20-5.50) X10*6/uL Hgb (12.0-16.0) g/dl Hct (37-47) % MCV (80-98) fL MCH (27.0-33.0) pg MCHC (31.0-35.0) g/dl RDW (11.0-16.0) % Plt Count (160-400) X10*3/uL MPV (9.4-12.3) fL Immature Gran % (Auto) (0.0-0.4) % Neut % (Auto) (45-73) % Lymph % (Auto) (20-40) % [place] % (Auto) (2-11) % Eos % (Auto) (0-4) % Baso % (Auto) (0-2) % Lymph # (Auto) (1.2-4.9) X10*3/uL [place] # (Auto) (0.1-1.2) X10*3/uL Eos # (Auto) (0.0-0.4) X10*3/uL Baso # (Auto) (0.0-0.2) X10*3/uL Abs Immat Gran (auto) (0.00-0.03) X10*3/uL Absolute Neuts (auto) (2.0-8.3) X10*3/uL Absolute Nucleated RBC (0.0-0.012) X10*3/uL Nucleated RBC % (auto) (0.0-0.2) /100WBC Sodium (135-145) mmol/L Potassium (3.3-5.1) mmol/L Chloride (96-108) mmol/L Carbon Dioxide (22-29) mmol/L Anion Gap (12-20) BUN (9-16) mg/dL Creatinine (0.5-1.4) mg/dL Estim Creat Clear Calc Estimated GFR Random Glucose (60-115) mg/dL Lactic Acid (0.5-2.0) mmol/L Calcium (8.4-10.2) mg/dL Troponin I High Sens 5.8 (<3.5-17.0) ng/L B-Natriuretic Peptide 40 (<100) pg/mL Imaging Data Chest x-ray: Attestation: I personally reviewed and interpreted this imaging study as follows: Radiologist's impression: EXAMINATION: XR CHEST CLINICAL INFORMATION: Shortness of breath COMPARISON: 09/21/2020 TECHNIQUE: Frontal view of the chest was obtained. FINDINGS: Lung volumes are low. Mild chronic coarse interstitial prominence. No focal consolidation or mass. No pleural effusion or pneumothorax. Normal heart size. No acute or suspicious osseous abnormality. XR/XR chest 1V IMPRESSION: No acute pulmonary disease. No significant change from prior study. CTA chest: Attestation: I personally reviewed and interpreted this imaging study as follows: Radiologist's impression: FINDINGS: QUALITY OF STUDY/CONTRAST BOLUS: Satisfactory. PULMONARY ARTERIES: No convincing central or segmental pulmonary emboli. Limited assessment of distal vessels due to bolus timing. THORACIC AORTA: No aneurysm or dissection. LUNG: Mild subsegmental atelectasis bilaterally without additional consolidation. PLEURA: No pleural effusion or pneumothorax. MEDIASTINUM: The visualized thyroid gland is unremarkable. There are subcentimeter mediastinal lymph nodes within the range of normal variation. Cardiac size is within normal limits; no pericardial effusion. CHEST WALL/AXILLA: No axillary or internal mammary lymphadenopathy. OSSEOUS STRUCTURES: No acute or suspicious osseous abnormality. UPPER ABDOMEN: The liver demonstrates hypoattenuation suspicious for steatosis. No reflux of contrast into the hepatic veins to suggest elevated right heart pressures. CT/CT angio chest PE protocol IMPRESSION: No pulmonary embolus identified. Limited evaluation of the distal vasculature due to bolus timing. VTE: negative ECG Data Attestation: I personally reviewed and interpreted this ECG as follows: ECG interpretation date: 12/29/20 ECG interpretation time: 22:40 Interpretation: Vent. rate 79 BPM AR interval 148 ms QRS duration 80 ms QT/QTc 376/431 ms P-R-T axes 62 6 35 Normal sinus rhythm Normal ECG When compared with ECG of 21-SEP-2020 00:46, No significant change was found Scores Wells PE Clinical symptoms of DVT: 3 Score: 3 2-tier Risk: likely risk (17-53%) 3-tier Risk: moderate risk (27.8%) Discharge Plan Discharge Clinical Impression: Hypoxia Cellulitis Qualifiers: Site of cellulitis: extremity Site of cellulitis of extremity: lower extremity Laterality: right Qualified Code(s): L03.115 - Cellulitis of right lower limb Patient Disposition: Left Against Medical Advice Instructions: Cellulitis (ED), Hypoxia (ED) Additional Instructions: You were evaluated for cellulitis and low oxygenation levels. You are leaving the hospital against medical advice. You more than welcome to return at any time. Please take doxycycline and Augmentin as directed. These medications are antibiotics and will help you fight your infection. Thank you for choosing this emergency department for evaluation. Please follow-up with primary care physician as needed. Return to the emergency department for any new, concerning, or worsening symptoms. Prescriptions: New doxycycline monohydrate 100 mg tablet 100 mg PO BID 10 Days Qty: 20 RF: 0 cefuroxime axetil 500 mg tablet 500 mg PO Q12H 10 Days Qty: 20 RF: 0 No Action albuterol sulfate 90 mcg/actuation HFA aerosol inhaler 1 puff inhalation QID PRN (Reason: bronchospasm) 30 Days Qty: 18 RF: 5 albuterol sulfate [ProAir HFA] 90 mcg/actuation HFA aerosol inhaler 1 inh inhalation QID PRN (Reason: shortness of breath or wheezing) 30 Days Qty: 8.5 RF: 5 lidocaine 5 % adhesive patch,medicated 1 patch topical .q 12H PRN (Reason: low back pain) 30 Days Qty: 30 RF: 0 cyclobenzaprine 5 mg tablet 5 mg PO BEDTIME PRN (Reason: muscle spasm) 30 Days Qty: 30 RF: 0 naproxen [Naprosyn] 500 mg tablet 500 mg PO BID PRN (Reason: pain) Qty: 60 RF: 3 azithromycin 250 mg Tablet 250 mg PO Q24H Qty: 3 RF: 0 prednisone 20 mg tablet 40 mg PO DAILY Qty: 10 RF: 0 nicotine [Nicoderm CQ] 21 mg/24 hr patch 24 hour 1 patch transdermal DAILY Qty: 14 RF: 0 Stand Alone Forms: Against Medical Advice Interventions: ED Discharge Assessment Last Done: 12/30/20 00:49
[2020-12-29] MEDS: Albuterol Sulfate (0.083%) 2.5 MG/3 ML VIAL.NEB 10 MG INHALE (19:55)
[2020-12-29 19:59] VITALS: PULSE 76; O2SAT 99
[2020-12-29 20:06] LABS: Lactic Acid 0.9 mmol/L (0.5-2.0)
[2020-12-29] MEDS: cefTRIAXone sodium 1 GM in 0.9 % Sodium Chloride 50 ML IV (20:16)
[2020-12-29 20:44] VITALS: PULSE 91; RESP 14; O2SAT 98
[2020-12-29 20:47] VITALS: BP 122/60; O2SAT 99
[2020-12-29] MEDS: vancomycin HCL 1,000 MG, vancomycin HCL 750 MG in 0.9 % Sodium Chloride 500 ML 267.5 MG IV (21:01)
--- NOTE | 2020-12-29 21:09 | PC.NURSE ---
pt 02 sat went down to 88% on room air while this nurse was hanging second antibiotic. pt remained asymptomatic and was not c/o SOB pt placed on 2L nasal cannula and recovered quickly to 96% on 2L NC. notified.
--- NOTE | 2020-12-29 22:11 | ECG_ITS ---
Test Reason : SOB Blood Pressure : / mmHG Vent. Rate : 079 BPM Atrial Rate : 079 BPM P-R Int : 148 ms QRS Dur : 080 ms QT Int : 376 ms P-R-T Axes : 062 006 035 degrees QTc Int : 431 ms Normal sinus rhythm Normal ECG When compared with ECG of 21-SEP-2020 00:46, No significant change was found Referred By: Yaritza Epperson Electronically Signed By:JOHN WELLS
[2020-12-29 23:09] LABS: Troponin-I High Sensitivity 5.8 ng/L (<3.5-17.0)
[2020-12-29 23:38] LABS: B Type Natriuretic Peptide 40 pg/mL (<100)
[2020-12-30] MEDS: iohexoL 350 MG/ML 100 ML INFUS..BTL 75 ML IV (00:47)
== END 2020-12-30 01:00 | disposition left against medical advice (07) ==
PROVIDERS: Hospitalist; Nurse Practitioner Family; Emergency Provider Emergency Medicine; PCP Internal Medicine
DX: R09.02 Hypoxemia (principal); R06.02 Shortness of breath; L03.115 Cellulitis of right lower limb; M79.662 Pain in left lower leg; M79.661 Pain in right lower leg; J45.909 Unspecified asthma, uncomplicated; E66.01 Morbid (severe) obesity due to excess calories; F11.20 Opioid dependence, uncomplicated; F17.210 Nicotine dependence, cigarettes, uncomplicated; Z79.899 Other long term (current) drug therapy
CPT/HCPCS: 36415; 71045; 71275; 80048; 83605; 83880; 84484; 85025; 87040; 87071; 87186; 87205; 93005; 94640; 94644; 96361; 96365; 96366; 96368; 96372; 96375; 99284; 99285; J0696; J3370; Q9967

== ENCOUNTER 2021-06-13 10:36 | Emergency (ER) | payer OTHER, SELFPAY ==
[2021-06-13 11:38] VITALS: BP 149/74; PULSE 82; RESP 18; TEMP 36.8; O2SAT 82; BMI 51.5
[2021-06-13 11:44] VITALS: O2SAT 88
== END 2021-06-13 14:57 | disposition left against medical advice (07) ==
PROVIDERS: Emergency Provider Emergency Medicine
DX: R21 Rash and other nonspecific skin eruption (principal); L03.115 Cellulitis of right lower limb
CPT/HCPCS: 99282; 99283

== ENCOUNTER 2021-07-03 18:12 | Outpatient (REF) | payer OTHER, SELFPAY | END 2021-07-03 18:13 | disposition home or self-care (01) | LOC: HO.LNP 18:12 | PROVIDERS: Visit Provider Physician Assistant | DX: L03.119 Cellulitis of unspecified part of limb (principal); S81.801A Unspecified open wound, right lower leg, initial encounter | CPT/HCPCS: 87071; 87077; 87147; 87186; 87205 ==

== ENCOUNTER 2021-07-23 08:34 | Outpatient (RCR) | payer OTHER, SELFPAY | END 2021-10-23 14:54 | disposition home or self-care (01) | LOC: HO.WCC 08:34 | PROVIDERS: Visit Provider Physician Assistant | DX: E11.621 Type 2 diabetes mellitus with foot ulcer (principal); L97.412 Non-pressure chronic ulcer of right heel and midfoot with fat layer exposed; L89.619 Pressure ulcer of right heel, unspecified stage; L03.115 Cellulitis of right lower limb; F17.210 Nicotine dependence, cigarettes, uncomplicated; Z79.2 Long term (current) use of antibiotics; F11.90 Opioid use, unspecified, uncomplicated | CPT/HCPCS: 11042; 29580; 99212; 99213 ==

== ENCOUNTER 2021-10-01 09:40 | Outpatient (REF) | payer OTHER, SELFPAY ==
--- NOTE | ~2021-10-01 | US_ITS ---
EXAMINATION: US VENOUS ULTRASOUND WITH DOPPLER LOWER EXTREMITY, RIGHT CLINICAL INFORMATION: Right leg pain and swelling. COMPARISON: None TECHNIQUE: Ultrasound of the deep veins is performed from the hip to the calf with compression sonography and color and pulse Doppler assessment. Spectral analysis with color-flow imaging is performed. FINDINGS: There is normal venous compression and respiratory variation and augmented flow. The visualized common femoral vein, superficial femoral vein, profunda femoral vein, popliteal vein, and the trifurcation region shows no evidence of deep venous thrombosis. There is no significant popliteal fossa cyst. Enlarged right inguinal lymph nodes are seen. A liability claims representative lymph node measures 5.5 cm in long axis. The surrounding soft tissues are unremarkable. US/US venous duplex LE RT IMPRESSION: 1. No evidence for deep venous thrombosis in the visualized veins of the right lower extremity. 2. Right inguinal lymph nodes are nonspecific, but pathologically enlarged. These could be reactive to unknown process, but clinical correlation is recommended.
== END 2021-10-01 09:41 | disposition home or self-care (01) ==
LOC: HO.US 09:40
PROVIDERS: PCP Internal Medicine; Visit Provider Surgery
DX: M79.661 Pain in right lower leg (principal); M79.89 Other specified soft tissue disorders
CPT/HCPCS: 93971

== ENCOUNTER 2021-10-16 09:25 | Inpatient (IN) | payer OTHER, SELFPAY ==
--- NOTE | ~2021-10-16 | US_ITS ---
EXAMINATION: US VENOUS ULTRASOUND WITH DOPPLER LOWER EXTREMITY, RIGHT CLINICAL INFORMATION: Red warm swollen right lower extremity COMPARISON: Ultrasound venous Doppler right from 10/01/2021 TECHNIQUE: Ultrasound of the deep veins is performed from the hip to the calf with compression sonography and color and pulse Doppler assessment. Spectral analysis with color-flow imaging is performed. FINDINGS: There is normal venous compression and respiratory variation and augmented flow. The visualized common femoral vein, superficial femoral vein, profunda femoral vein, popliteal vein, and the trifurcation region shows no evidence of deep venous thrombosis. There is no significant popliteal fossa cyst. Soft tissue edema overlying the right calf. If the patient's symptoms persist, followup ultrasound in 5 days 7 days might be of value to exclude proximal propagation from a non-visualized calf vein. US/US venous duplex LE RT IMPRESSION: 1. No DVT demonstrated in the right lower extremity. 2. Soft tissue edema overlying the right calf.
--- NOTE | ~2021-10-16 | US_ITS ---
EXAMINATION: ULTRASOUND EXTREMITY NONVASCULAR. CLINICAL INFORMATION: Right leg cellulitis. COMPARISON: None TECHNIQUE: Routine grayscale and color imaging of right posterior calf was performed. FINDINGS: Imaging of right calf with areas of skin changes reveals no abscess, mass or fluid collection. There are findings of dilated varicose veins in the region of skin abnormality. US/US extremity nonvascular IMPRESSION: In the area of right calf where there are skin changes there is no abscess, mass or fluid. There are dilated perforators consistent with superficial varicose veins. She has venous ulcers in the foot.
[2021-10-16 10:13] VITALS: BP 154/85; PULSE 80; RESP 18; TEMP 36.6; O2SAT 97; BMI 51.5
[2021-10-16 10:35] LABS: MANUAL DIFF FLAG NO
[2021-10-16 10:38] LABS: Basophils Absolute Auto 0.1 X10*3/uL (0.0-0.2); Basophils Percent Auto 0.8 % (0-2); Eosinophils Absolute Auto 0.5 X10*3/uL (0.0-0.4); Eosinophils Percent Auto 5.9 % (0-4); Hematocrit 37.2 % (37.0-47.0); Hemoglobin 11.6 g/dl (12.0-16.0); Imm Gran Abs Auto 0.02 X10*3/uL (0.00-0.03); Imm Gran Pct Auto 0.2 % (0.0-0.4); Lymphocytes Percent Auto 24.2 % (20-40); Mean Corpuscular HGB Conc 31.2 g/dl (31.0-35.0); Mean Corpuscular Hemoglobin 29.4 pg (27.0-33.0); Mean Corpuscular Volume 94.4 fL (80.0-98.0); Mean Platelet Volume 9.2 fL (9.4-12.3); Monocytes Absolute Auto 0.4 X10*3/uL (0.1-1.2); Monocytes Percent Auto 5.3 % (2-11); Neutrophils Absolute Auto 5.3 x10*3/uL (2.0-8.3); Neutrophils Percent Auto 63.6 % (45-73); Platelet Count 336 X10*3/uL (160-400); Red Blood Count 3.94 X10*6/uL (4.20-5.50); Red Cell Distribution Width 14.7 % (11.0-16.0); White Blood Count 8.3 X10*3/uL (4.8-10.8)
[2021-10-16 10:50] LABS: Anion Gap 11 (12-20); Blood Urea Nitrogen 12 mg/dL (9-16); Calcium 9.1 mg/dL (8.4-10.2); Carbon Dioxide 31 mmol/L (22-29); Chloride 96 mmol/L (96-108); Creatinine Clr Calc Pharmacy 134.6; Estimated Glomerular Filt Rate > 60; Glucose Random 141 mg/dL (60-115); Potassium 4.3 mmol/L (3.3-5.1); Sodium 134 mmol/L (135-145)
[2021-10-16 14:00] VITALS: BP 174/110; PULSE 86; RESP 18; TEMP 36.8; O2SAT 94
--- NOTE | 2021-10-16 15:29 | PC.NURSE ---
pt a&ox3, vss - htn, c/o cellulitis (right lower leg) - worse over past few weeks, had cleared up, pt not tolerating po abx. c/o 11/14 chronic back pain - degenerative disc disease. u/s in room w pt.
--- NOTE | 2021-10-16 16:26 | ED.SKABFB ---
HPI - Skin/Abscess/Foreign Bdy General Chief complaint: Skin/Abscess/Foreign Body Stated complaint: Cellulitis Time Seen by Provider: 10/16/21 14:50 Source: patient Mode of arrival: ambulatory Limitations: no limitations History of Present Illness HPI narrative: 41-year-old female presents for right leg cellulitis. States the cellulitis started in November 2021, she is seen at the wound center for it. States that 2 weeks ago the cellulitis came back and is worsening. Is red, warm, hot, skin is flaking and her skin is weeping. She finished 1 course of cephalexin, and has been on 7 days of doxycycline. Her right lower extremity is getting worse, and wound care saw her yesterday and sent her for a warm, swollen, erythematous leg. Wound care thought she may need admission for IV antibiotics. Patient states her pain is increasing, but she has not had fevers, chest pain, shortness of breath, abdominal pain, nausea, vomiting, diarrhea. Related Data Home Medications Medication Instructions Recorded Confirmed methadone 10 mg/mL oral concentrate 130 mg PO DAILY 10/16/21 10/16/21 Previous Rx's Medication Instructions Recorded albuterol sulfate 90 mcg/actuation 1 puff INHALATION QID PRN 30 Days 09/12/20 aerosol inhaler #18 g doxycycline monohydrate 100 mg 100 mg PO BID 10 Days #20 tab 12/29/20 tablet Allergies Allergy/AdvReac Type Severity Reaction Status Date / Time No Known Allergies Allergy Verified 07/17/21 08:42 [No Known Allergies*] Review of Systems Constitutional: Constitutional: Denies body ache(s), Denies chills, Denies fatigue, Denies fever(s), Denies headache(s), Denies malaise and Denies weakness Eyes: Eyes: Denies diplopia ENT: Denies vertigo, Denies dizziness, Denies otalgia, Denies headache(s), Denies mouth pain, Denies post nasal drip, Denies sinus pain, Denies sinus pressure, Denies sore throat and Denies throat swelling Cardiovascular: Cardiovascular: Denies chest pain, Denies syncope, Denies leg edema, Denies lightheadedness, Denies Loss of Consciousness, Denies palpitations and Denies dyspnea Respiratory: Respiratory: Denies chest congestion, Denies cough and Denies dyspnea Gastrointestinal: Gastrointestinal: Reports abdominal pain, Denies hematochezia, Denies constipation, Denies diarrhea and Denies vomiting Musculoskeletal: Musculoskeletal: Denies muscle cramps and Denies muscle weakness Integumentary/Breasts: Skin/Breast: Reports swelling, Reports erythema, Reports rash, Reports skin pain, Reports skin swelling and Reports wounds Neurologic: Denies confusion, Denies vertigo, Denies dizziness, Denies syncope, Denies headache(s) and Denies weakness Psychiatric: Psychiatric: Denies anxiety, Denies confusion and Denies depression Endocrine: Endocrine: Denies fatigue and Denies palpitations Allergic/Immunologic: Allergic/Immunologic: Denies throat swelling PMFSH Past Medical History Medical History Asthma Chronic back pain Lumbago syndrome Methadone use Social History Social History Household Members: Family Housing: House Do you presently have visiting nurse or other home services: No Alcohol intake: unknown Cigarette Packs Per Day: 1 Cigarettes Per Day: 20.0 Substance Use Type: Heroin Advance Directives: No Advance Directives Information Provided: No service: No Current occupational status: unemployed Physical Exam Vital Signs: Vital Signs: Last Vital Signs Temp 97.9 F 10/16/21 17:04 Pulse 77 10/16/21 17:04 Resp 16 10/16/21 17:04 BP 145/75 H 10/16/21 17:04 Pulse Ox 94 10/16/21 17:04 BMI result Body Mass Index 51.5 Const: General: No confusion Nutritional Appearance: well nourished Orientation/consciousness: No confusion Limitations: no limitations Eyes: Conjunctivae: conjunctivae normal Pupils: Equal, round and reactive pupils present EOM: EOMs intact bilaterally Neck: Neck: Yes full ROM, Yes no lymphadenopathy and Yes supple Resp: Effort & Inspection: normal respiratory effort and able to speak in complete sentences Auscultation: clear to auscultation bilaterally, no crackles, no rales, no rhonchi and no wheezes Cardio: Rate: regular rate Rhythm: regular rhythm Heart sounds: S1 normal heart sound present and S2 normal heart sound present GI: Inspection: Yes normal to inspection Palpation (GI): Soft to palpation, nontender, no guarding and not rigid Percussion: Yes normal to percussion Auscultation: normal bowel sounds Skin: Other: Neuro: General: No confusion Cranial nerves: Yes Equal, round and reactive pupils present Extrem: General: Yes normal to inspection and Yes full ROM Psych: Appearance: grossly normal Affect: normal affect Attitude: cooperative Thought process: Normal thought process present Course Course Course Narrative: 41-year-old female with right lower extremity cellulitis that is worsening over the last 2 weeks Patient has failed 2 courses of oral antibiotics, 1st cephalexin, then doxycycline On exam, patient has stable vitals, her right lower extremity is red, warm, painful to the touch, flaking, and indurated I started IV antibiotics, no leukocytosis, labs are unremarkable, lactate 1.8. Dr Payan accepted pt for admission Reevaluation(s) Reevaluation #1: US/US venous duplex LE RT IMPRESSION: 1.? No DVT demonstrated in the right lower extremity. 2.? Soft tissue edema overlying the right calf. Reevaluation #2: Patient initially refused admission, concerned for her job and her son with disability at home. I did chromosomal disorders counselor patient that she must be admitted for IV antibiotics or she could become septic, she could lose her leg, she could possibly . Amanda from Case Management spoke to patient, patient admitted to using heroin recently. Pt will be admitted MDM - Skin/Abscess/Foreign Bdy Lab Data Result diagrams: 10/16/21 10:30 10/16/21 10:30 Labs: Lab Results 10/16/21 10/16/21 10/16/21 Range/Units 10:30 10:30 16:33 WBC 8.3 (4.8-10.8) X10*3/uL RBC 3.94 L (4.20-5.50) X10*6/uL Hgb 11.6 L (12.0-16.0) g/dl Hct 37.2 (37.0-47.0) % MCV 94.4 (80.0-98.0) fL MCH 29.4 (27.0-33.0) pg MCHC 31.2 (31.0-35.0) g/dl RDW 14.7 (11.0-16.0) % Plt Count 336 (160-400) X10*3/uL MPV 9.2 L (9.4-12.3) fL Immature Gran % (Auto) 0.2 (0.0-0.4) % Neut % (Auto) 63.6 (45-73) % Lymph % (Auto) 24.2 (20-40) % [place] % (Auto) 5.3 (2-11) % Eos % (Auto) 5.9 H (0-4) % Baso % (Auto) 0.8 (0-2) % Lymph # (Auto) 2.0 (1.2-4.9) X10*3/uL [place] # (Auto) 0.4 (0.1-1.2) X10*3/uL Eos # (Auto) 0.5 H (0.0-0.4) X10*3/uL Baso # (Auto) 0.1 (0.0-0.2) X10*3/uL Abs Immat Gran (auto) 0.02 (0.00-0.03) X10*3/uL Absolute Neuts (auto) 5.3 (2.0-8.3) x10*3/uL Absolute Nucleated RBC 0.000 (0.0-0.012) X10*3/uL Nucleated RBC % (auto) 0.0 (0.0-0.2) /100WBC Sodium 134 L (135-145) mmol/L Potassium 4.3 (3.3-5.1) mmol/L Chloride 96 (96-108) mmol/L Carbon Dioxide 31 H (22-29) mmol/L Anion Gap 11 L (12-20) BUN 12 (9-16) mg/dL Creatinine 0.75 (0.5-1.4) mg/dL Estim Creat Clear Calc 134.6 Estimated GFR > 60 Random Glucose 141 H (60-115) mg/dL Lactic Acid 1.8 (0.5-2.0) mmol/L Calcium 9.1 (8.4-10.2) mg/dL COVID-19 (PANFILO) (Negative) COVID-19 Clin Com 10/16/21 Range/Units 17:01 WBC (4.8-10.8) X10*3/uL RBC (4.20-5.50) X10*6/uL Hgb (12.0-16.0) g/dl Hct (37.0-47.0) % MCV (80.0-98.0) fL MCH (27.0-33.0) pg MCHC (31.0-35.0) g/dl RDW (11.0-16.0) % Plt Count (160-400) X10*3/uL MPV (9.4-12.3) fL Immature Gran % (Auto) (0.0-0.4) % Neut % (Auto) (45-73) % Lymph % (Auto) (20-40) % [place] % (Auto) (2-11) % Eos % (Auto) (0-4) % Baso % (Auto) (0-2) % Lymph # (Auto) (1.2-4.9) X10*3/uL [place] # (Auto) (0.1-1.2) X10*3/uL Eos # (Auto) (0.0-0.4) X10*3/uL Baso # (Auto) (0.0-0.2) X10*3/uL Abs Immat Gran (auto) (0.00-0.03) X10*3/uL Absolute Neuts (auto) (2.0-8.3) x10*3/uL Absolute Nucleated RBC (0.0-0.012) X10*3/uL Nucleated RBC % (auto) (0.0-0.2) /100WBC Sodium (135-145) mmol/L Potassium (3.3-5.1) mmol/L Chloride (96-108) mmol/L Carbon Dioxide (22-29) mmol/L Anion Gap (12-20) BUN (9-16) mg/dL Creatinine (0.5-1.4) mg/dL Estim Creat Clear Calc Estimated GFR Random Glucose (60-115) mg/dL Lactic Acid (0.5-2.0) mmol/L Calcium (8.4-10.2) mg/dL COVID-19 (PANFILO) Negative (Negative) COVID-19 Clin Com See Note Discharge Plan Discharge Clinical Impression: Cellulitis, leg, Leg wound, right Patient Disposition: Admitted As Inpatient
[2021-10-16 16:49] LABS: Lactic Acid 1.8 mmol/L (0.5-2.0)
[2021-10-16 17:04] VITALS: BP 145/75; PULSE 77; RESP 16; TEMP 36.6; O2SAT 94
[2021-10-16] MEDS: 0.9 % Sodium Chloride 1,000 ML 999 ML IV (17:12)
[2021-10-16] MEDS: ceFAZolin Sodium/Dextrose,Iso 2 GM/50 ML PIGGYBACK IV (17:12)
--- NOTE | 2021-10-16 17:16 | PC.NURSE ---
medicated per provider order, IVF running.
--- NOTE | 2021-10-16 17:24 | PHA.MEDREC ---
Pharmacy Consult ? Medication Reconciliation Pharmacy has completed the medication reconciliation. Patient taking methadone 130mg. Took todays dose 10/16
[2021-10-16 17:29] LABS: COVID-19 Test Negative (Negative); IDNOW Serial# 16C4AD1C
--- NOTE | 2021-10-16 18:13 | PC.NURSE ---
pt assisted to bedside commode.
--- NOTE | 2021-10-16 20:15 | MHC.CM.PN ---
CM met with patient at request of Aixa KIDD. Inpatient admission recommended for cellulitis. Pt is currently refusing, stating she needs to care for disabled son at home and cannot be out of work. CM spoke with patient about concerns for worsening infection which could lead to ? bone infection and possible amputation if left untreated. CM spoke with patient about son's disability. Pt tells CM her son is 20 years old, cannot be left for long periods of time alone, is slow and has neurofibromatosis. States her son had an IEP at school, but quit at 18. CM questioned if son has a DDS field nurse case manager, as perhaps respite could be found for him while he is in the hospital. Pt thinks he has a field nurse case manager, but cannot remember the name. States she has no family that will help her. 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 When asked who cares for her son, she then tells CM he can stay at home while she works. Pt tells CM her son can read and could dial 911 in an emergency, but he does not have a phone. Son cannot cook. Pt has been in the hospital since 926. Pt tells CM that she is working with someone, maybe DDS, to get her son into a job training program. Pt is also working with Social security to get her son benefits, but states that is not going well. Pt decided to remain in the hospital and said she could call a friend to slate picker her son overnight. Pt is unsure who will watch her son tomorrow. CM could not verify if son is a client with DDS, as office is closed at this time. This CM is very concerned about the above situation and has concerns that her son may be at risk. Son's name is Alonso Harrison. This CM called the Disabled Persons Protection Commisson ( ) and filed as a mandated digital court reporter on 10/16/21 @2190. . Per [facility], CM can call the commission again if we learn of any new information regarding Alonso Harrison. Requested that CM reference the case number. CM will need to F/U with DSS in the morning. Pt lives with son and ex-boyfriend. Received J&J vaccine, but no booster. Pt uses no DME/services. Pt is on MAT at [facility]. Methadone 130 mg/daily. Pt states she is not clean, has relapsed and snorted Heroin yesterday. Pt declines HCP at this time. D/C plan: pending hospital course. Pt may need continued wound care services. If pt needs IV therapy , not a candidate for Home IV therapy secondary to hx of current heroin misuse. Pt states she will arrange transportation home. CM to follow for d/c needs.
[2021-10-16] MEDS: vancomycin HCL 1,000 MG, vancomycin HCL 750 MG in 0.9 % Sodium Chloride 500 ML 267.5 MG IV (20:29)
--- NOTE | 2021-10-16 20:31 | PC.NURSE ---
antibiotics running per order
[2021-10-16 21:38] VITALS: BP 152/77; PULSE 84; RESP 20; TEMP 36.7; O2SAT 93
[2021-10-16 23:35] VITALS: BP 147/76; PULSE 88; RESP 15; O2SAT 92
--- NOTE | 2021-10-16 23:39 | P.HPHOSP_ITS ---
History of Present Illness Date of Service: 10/16/21 Chief Complaint: Leg pain 41-year-old female with a past medical history of asthma, chronic low back pain, opiate dependence on methadone, tobacco dependence presented to the hospital today with a chief complaint of right leg pain redness and swelling. Patient reports that over the past 2 weeks he has been having pain redness and swelling of her right leg; has been on antibiotics as outpatient with no significant improvement; lately noted to have serosanguineous discharge from the wound and increased pain; mentioned that she was on cephalexin and doxycycline with no significant improvement on the p.o. antibiotics as outpatient. Denies any fevers and chills. Denies any chest pain or palpitations. Reports he has low back pain-which has been chronic; denies any numbness tingling or focal weakness. Denies any GI symptoms. Review of all other systems is negative except mentioned above ER course: Per ER team patient noted to have right leg pain redness and swelling; concerning for cellulitis; given antibiotics. Also had venous duplex done which showed no evidence of DVT. Admitted for further management. [facility] Medical History Asthma Chronic back pain Lumbago syndrome Methadone use Social History Household Members: Family Housing: House Do you presently have visiting nurse or other home services: No Alcohol intake: unknown Cigarette Packs Per Day: 1 Cigarettes Per Day: 20.0 Substance Use Type: Heroin Advance Directives: No Advance Directives Information Provided: No service: No Current occupational status: unemployed Meds Allergies Allergy/AdvReac Type Severity Reaction Status Date / Time No Known Allergies Allergy Verified 07/17/21 08:42 [No Known Allergies*] Active Medications: Current Medications Acetaminophen (Acetaminophen 325 Mg Tablet) 650 mg PO Q6H PRN PRN Reason: Pain, Mild (Pain Scale 1-3) Enoxaparin Sodium (Enoxaparin Sodium 40 Mg/0.4 Ml Syringe) 40 mg SUBCUT Q24H VIJAY Vancomycin HCl 1,000 mg/ (Sodium Chloride) 270 mls @ 270 mls/hr IV Q12H VIJAY Piperacillin Sod/Tazobactam (Sod 3.375 gm/ Sodium Chloride) 50 mls @ 100 mls/hr IV Q6H [facility] Melatonin (Melatonin 3 Mg Tablet) 6 mg PO BEDTIME PRN PRN Reason: Insomnia Pharmacy Consult (Consult Rx Perform Med Rec) 1 each MISCELLANE ONCE PRN PRN Reason: Consult order Pharmacy Consult (Consult Rx Vancomycin Dosing) 1 each MISCELLANE DAILY PRN PRN Reason: Consult order Senna (Sennosides 8.6 Mg Tablet) 17.2 mg PO BEDTIME PRN PRN Reason: Constipation Sodium Chloride (0.9 % Sodium Chloride Flush 3 Ml Syringe) 3 ml IVFLUSH QSHIFT [facility] Home Medications Medication Instructions Recorded Confirmed Last Taken Type methadone 10 mg/mL oral concentrate 130 mg PO DAILY 10/16/21 10/16/21 10/16/21 History Physical Exam Vital Signs and Narrative: Vital Signs: Last Vital Signs Temp 98.1 F 10/16/21 21:38 Pulse 84 10/16/21 21:38 Resp 20 10/16/21 21:38 BP 152/77 H 10/16/21 21:38 Pulse Ox 93 10/16/21 21:38 BMI result Body Mass Index 51.5 Results Labs CBC and Chem 7: 10/16/21 10:30 10/16/21 10:30 Labs: Laboratory Results - last 24 hr 10/16/21 10/16/21 10/16/21 10:30 10:30 16:33 MCV 94.4 MCH 29.4 MCHC 31.2 RDW 14.7 Plt Count 336 MPV 9.2 L Immature Gran % (Auto) 0.2 Neut % (Auto) 63.6 Lymph % (Auto) 24.2 [place] % (Auto) 5.3 Eos % (Auto) 5.9 H Baso % (Auto) 0.8 Lymph # (Auto) 2.0 [place] # (Auto) 0.4 Eos # (Auto) 0.5 H Baso # (Auto) 0.1 Abs Immat Gran (auto) 0.02 Absolute Neuts (auto) 5.3 Absolute Nucleated RBC 0.000 Nucleated RBC % (auto) 0.0 Anion Gap 11 L Estim Creat Clear Calc 134.6 Estimated GFR > 60 Random Glucose 141 H Lactic Acid 1.8 Calcium 9.1 COVID-19 (PANFILO) COVID-19 Clin Com 10/16/21 17:01 MCV MCH MCHC RDW Plt Count MPV Immature Gran % (Auto) Neut % (Auto) Lymph % (Auto) [place] % (Auto) Eos % (Auto) Baso % (Auto) Lymph # (Auto) [place] # (Auto) Eos # (Auto) Baso # (Auto) Abs Immat Gran (auto) Absolute Neuts (auto) Absolute Nucleated RBC Nucleated RBC % (auto) Anion Gap Estim Creat Clear Calc Estimated GFR Random Glucose Lactic Acid Calcium COVID-19 (PANFILO) Negative COVID-19 Clin Com See Note Imaging Radiologist's Impressions: Impressions Venous Duplex 10/16/21 15:28 IMPRESSION: 1. No DVT demonstrated in the right lower extremity. 2. Soft tissue edema overlying the right calf. Assessment and Plan (1) Cellulitis, leg: Status: Acute Plan 41-year-old female with a past medical history of asthma, chronic low back pain, opiate dependence on methadone, tobacco dependence presented to the hospital today with a chief complaint of right leg pain redness and swelling. Noted to have right leg cellulitis; admitted for further management. Right leg cellulitis: Patient failed outpatient oral antibiotic therapy Will give the patient on IV vancomycin Zosyn Id consult Pain control Venous duplex negative for DVT Will also obtain nonvascular ultrasound to rule out an abscess History of asthma: Stable . Sasha p.r.n. History of tobacco dependence: Nicotine patch offered History of opiate dependence: Patient on methadone-addiction Medicine consult for confirmation resuming her methadone. DVT prophylaxis: Lovenox Code status: Full code Quality Stroke Does the patient have a stroke diagnosis?: No VTE Prior VTE?: No VTE Risk Level:: Medical - moderate - high VTE Device Contraindication: Treatment Not Indicated VTE Drug Contraindication: N/A - Med Ordered
[2021-10-17] MEDS: Enoxaparin Sodium 40 MG/0.4 ML SYRINGE SUBCUT (00:18)
[2021-10-17] MEDS: Nicotine 14 MG PATCH.TD24 TRANSDERMA ×2 (00:19→11:01)
[2021-10-17] MEDS: Piperacillin Sodium/Tazobactam 3.375 GM in 0.9 % Sodium Chloride 50 ML IV ×4 (00:21→18:00)
--- NOTE | 2021-10-17 03:58 | PC.NURSE ---
Patient uncomfortable and suffer from chronic back pain. Patient was placed in a hospital bed which seemed to help
[2021-10-17] MEDS: oxyCODONE HCl Immed Release 5 MG TABLET PO ×2 (05:13→16:21)
--- NOTE | 2021-10-17 05:19 | PC.NURSE ---
Patient asking to leave. Hospitalist asked to give patient pain medication for her back pain. He prescribed Oxycodone for her back pain.
[2021-10-17 06:00] VITALS: BP 150/72; PULSE 93; RESP 16; TEMP 36.7; O2SAT 93
[2021-10-17 06:47] LABS: MANUAL DIFF FLAG NO
[2021-10-17 06:53] LABS: Basophils Absolute Auto 0.1 X10*3/uL (0.0-0.2); Basophils Percent Auto 0.8 % (0-2); Eosinophils Absolute Auto 0.6 X10*3/uL (0.0-0.4); Eosinophils Percent Auto 6.4 % (0-4); Hematocrit 36.5 % (37.0-47.0); Hemoglobin 11.6 g/dl (12.0-16.0); Imm Gran Abs Auto 0.04 X10*3/uL (0.00-0.03); Imm Gran Pct Auto 0.4 % (0.0-0.4); Lymphocytes Absolute Auto 2.1 X10*3/uL (1.2-4.9); Lymphocytes Percent Auto 22.9 % (20-40); Mean Corpuscular HGB Conc 31.8 g/dl (31.0-35.0); Mean Corpuscular Volume 94.3 fL (80.0-98.0); Mean Platelet Volume 9.8 fL (9.4-12.3); Monocytes Absolute Auto 0.5 X10*3/uL (0.1-1.2); Monocytes Percent Auto 5.8 % (2-11); Neutrophils Absolute Auto 5.8 x10*3/uL (2.0-8.3); Neutrophils Percent Auto 63.7 % (45-73); Platelet Count 326 X10*3/uL (160-400); Red Blood Count 3.87 X10*6/uL (4.20-5.50); Red Cell Distribution Width 14.8 % (11.0-16.0); White Blood Count 9.1 X10*3/uL (4.8-10.8)
[2021-10-17 07:22] LABS: Anion Gap 13 (12-20); Blood Urea Nitrogen 9 mg/dL (9-16); Carbon Dioxide 31 mmol/L (22-29); Chloride 95 mmol/L (96-108); Creatinine Clr Calc Pharmacy 136.3; Estimated Glomerular Filt Rate > 60; Glucose Random 102 mg/dL (60-115); Potassium 4.1 mmol/L (3.3-5.1); Sodium 135 mmol/L (135-145)
--- NOTE | 2021-10-17 08:04 | PC.NURSE ---
Methadone verification form completed
--- NOTE | 2021-10-17 09:44 | PHA.PROG ---
Admission Date/Time: October 16, 2021 23:35 Indication: CELLULITIS Weight in k.078 kg Adjusted body weight in K.3 KG [place] body weight in K.7 Obesity Dosing Indication % IBW: Serum Creatinine - Last 168 Hours 10/16/21 10/17/21 10:30 05:55 Creatinine 0.75 0.74 Estimated CrCl and GFR - Last 168 Hours 10/16/21 10/17/21 10:30 05:55 Estim Creat Clear Calc 134.6 136.3 Estimated GFR > 60 > 60 Vancomycin Loading Dose: 1750 MG X 1 Current Vancomycin Dosing Regimen: 1000 MG Q12H Vancomycin Monitoring using AUC goal of 400 - 600 range with trough as surrogate marker: PREDICTED AUC OF 444, TROUGH 12.2 Date and Time for next Vancomycin Level to be drawn: 10/18/21 @0800 Pharmacist Comments on Vancomycin Plan: OBESE MODEL USED Vancomycin dosing will take advantage of [employer] as a clinical decision support tool that uses Bayesian modeling to calculate individual patient's pharmacokinetic parameters and forecast the patient's drug concentration time course with the target goal AUC 24 range of 400 - 600 mg/L/hr.
[2021-10-17] MEDS: vancomycin HCL 1,000 MG in 0.9 % Sodium Chloride 250 ML 270 MG IV (10:26)
[2021-10-17] MEDS: 0.9 % Sodium Chloride Flush 3 ML SYRINGE IVFLUSH ×2 (10:26→18:00)
[2021-10-17] MEDS: Acetaminophen 325 MG TABLET 650 MG PO (10:28)
--- NOTE | 2021-10-17 10:48 | PC.NURSE ---
commode placed at bedside for accessibility. pt calm and cooperative, medications with tylenol for back pain. pharmacy called for pt nicotine patch
--- NOTE | 2021-10-17 11:38 | P.PNIM_ITS ---
Subjective Subjective Date of Service: 10/17/21 Interval History: cc: right leg edema, worsening erythema, pain interval history: some improvement, still with pain Cardiovascular Cardiovascular: Reports no additional cardiovascular complaints Respiratory Respiratory: Reports no additional respiratory complaints Physical Exam Vital Signs: Vital Signs: Last Vital Signs Temp 98.0 F 10/17/21 06:00 Pulse 93 10/17/21 06:00 Resp 16 10/17/21 06:00 BP 150/72 H 10/17/21 06:00 Pulse Ox 93 10/17/21 06:00 BMI result Body Mass Index 51.5 General: AO X 3, no acute distress Resp: CTA bilateral, no accessory muscles used CVS: S1,S2,RRR GI: soft, non tender, non distended Neuro: motor grossly intact, alert Psych: appropriate affect, appropriate insight RLE ertyhema, edema, tenderness Objective Data Active Medications Acetaminophen (Acetaminophen 325 Mg Tablet) 650 mg PO Q6H PRN PRN Reason: Pain, Mild (Pain Scale 1-3) Last Admin: 10/17/21 10:28 Dose: 650 mg Documented by: YOHANA Albuterol/Ipratropium (Albuterol/Iprat 2.5/0.5mg 3 Ml Ampul.Neb) 3 ml INHALE RQ4H PRN PRN Reason: Shortness of Breath/Wheezing Enoxaparin Sodium (Enoxaparin Sodium 40 Mg/0.4 Ml Syringe) 40 mg SUBCUT Q24H [facility] Last Admin: 10/17/21 00:18 Dose: 40 mg Documented by: ZOHRA Vancomycin HCl 1,000 mg/ (Sodium Chloride) 270 mls @ 270 mls/hr IV Q12H [facility] Last Admin: 10/17/21 10:26 Dose: 270 mls/hr Documented by: YOHANA Piperacillin Sod/Tazobactam (Sod 3.375 gm/ Sodium Chloride) 50 mls @ 100 mls/hr IV Q6H [facility] Last Infusion: 10/17/21 05:43 Dose: 0 mls/hr Documented by: ZOHRA Melatonin (Melatonin 3 Mg Tablet) 6 mg PO BEDTIME PRN PRN Reason: Insomnia Nicotine (Nicotine 14 Mg Patch.Td24) 14 mg TRANSDERMA DAILY [facility] Last Admin: 10/17/21 11:01 Dose: 14 mg Documented by: YOHANA Pharmacy Consult (Consult Rx Perform Med Rec) 1 each MISCELLANE ONCE PRN PRN Reason: Consult order Pharmacy Consult (Consult Rx Vancomycin Dosing) 1 each MISCELLANE DAILY PRN PRN Reason: Consult order Senna (Sennosides 8.6 Mg Tablet) 17.2 mg PO BEDTIME PRN PRN Reason: Constipation Sodium Chloride (0.9 % Sodium Chloride Flush 3 Ml Syringe) 3 ml IVFLUSH QSHIFT [facility] Last Admin: 10/17/21 10:26 Dose: 3 ml Documented by: YOHANA Labs CBC & Chem 7: 10/17/21 05:55 10/17/21 05:55 Labs: Laboratory Results - last 24 hr 10/16/21 10/16/21 10/17/21 16:33 17:01 05:55 MCV 94.3 MCH 30.0 MCHC 31.8 RDW 14.8 Plt Count 326 MPV 9.8 Immature Gran % (Auto) 0.4 Neut % (Auto) 63.7 Lymph % (Auto) 22.9 [place] % (Auto) 5.8 Eos % (Auto) 6.4 H Baso % (Auto) 0.8 Lymph # (Auto) 2.1 [place] # (Auto) 0.5 Eos # (Auto) 0.6 H Baso # (Auto) 0.1 Abs Immat Gran (auto) 0.04 H Absolute Neuts (auto) 5.8 Absolute Nucleated RBC 0.000 Nucleated RBC % (auto) 0.0 Anion Gap Estim Creat Clear Calc Estimated GFR Random Glucose Lactic Acid 1.8 Calcium COVID-19 (PANFILO) Negative COVID-19 Clin Com See Note 10/17/21 05:55 MCV MCH MCHC RDW Plt Count MPV Immature Gran % (Auto) Neut % (Auto) Lymph % (Auto) [place] % (Auto) Eos % (Auto) Baso % (Auto) Lymph # (Auto) [place] # (Auto) Eos # (Auto) Baso # (Auto) Abs Immat Gran (auto) Absolute Neuts (auto) Absolute Nucleated RBC Nucleated RBC % (auto) Anion Gap 13 Estim Creat Clear Calc 136.3 Estimated GFR > 60 Random Glucose 102 Lactic Acid Calcium 9.0 COVID-19 (PANFILO) COVID-19 Clin Com Assessment and Plan (1) Leg wound, right: Status: Acute Plan 41F presented with worsening rle erythema, edema, pain RLE cellulitis superimposed on chronic venous stasis wound culture from jun 2021 GBS, pseudomonas, MSSA continue vanc zosyn for now, follow up ID, cultures morbid obesity weight loss moderate persistent asthma smoking cessation opiate dependence follow up customer management specialist verify methadone dvt prophylaxis- lovenox reason for continued hospitalization: extensive cellulitis requiring iv abx Quality Stroke Does the patient have a stroke diagnosis?: No VTE Prior VTE?: No VTE Risk Level:: Medical - moderate - high VTE Device Contraindication: Treatment Not Indicated VTE Drug Contraindication: N/A - Med Ordered
--- NOTE | 2021-10-17 13:22 | MHC.RECOVRN ---
T/W met w/ pt. Pt states been on methadone for 5 years at [facility], pt states daily dose 130mg daily. Pt states intermittent use of heroin IN 2-3 bags every other week to manage acute pain in low back. Pt states no hx of OD, has narcan, knows how to use. Pt states no recovery support from family. T/W discussed Recovery Support RN role and plan, to follow up on MTD dose and pain mgmt. Pt agreed. Will follow up.
[2021-10-17] MEDS: methADONE HCl 20 MG/2 ML ORAL.CONC 130 MG PO (13:36)
[2021-10-17 17:43] VITALS: BP 160/83; PULSE 76; RESP 18; TEMP 36.4; O2SAT 91
--- NOTE | 2021-10-17 18:35 | MHC.CM.PN ---
KAELYN called [facility] office. According to Alonso Trujillo, this patient's son is not a client of [facility].
--- NOTE | 2021-10-17 19:18 | PC.NURSE ---
Patient arrived to unit and as this RN introduced self to patient, patient requesting to speak to Dr and asking if he is letting her go home tonight. Explained that she was being admitted overnight and that her infection in her leg requires IV antibiotics. Patient stated that she needs to pay her landlord so she needs to work because she has a child at home and can't get evicted. Dr. Goss notified. No plan to discharge tonight and patient notified of this. Patient agreed to take 1 more dose of IV antibiotics before leaving AMA. Right leg wrapped with xeroform, nonwoven sponges, and kerlix wrap. Patient counseled on worsening symptoms, to continue antibiotics that were previously prescribed and to f/u with pcp and wound clinic. IV removed from right inner arm. AMA signed.
--- NOTE | 2021-10-18 06:53 | PM.DS ---
DS: Providers Provider Date of Service: 10/18/21 Date of admission: 10/16/21 23:35 Primary care physician: Monty Russell MD Consults: 10/16/21 23:36 Consult to Infectious Diseases Routine Consulting Provider: Lindsey Carballo Reason for consultation: cellulitis; 10/16/21 23:38 Addiction Medicine Routine Consulting Provider: Zari Ibarra Reason for consultation: pt on methadone; still using heroin DS: Diagnosis Discharge Diagnosis (1) Leg wound, right: Status: Acute DS: Summary Hospital Course Hospital Course: from initial hpi: Chief Complaint: Leg pain 41-year-old female with a past medical history of asthma, chronic low back pain, opiate dependence on methadone, tobacco dependence presented to the hospital today with a chief complaint of right leg pain redness and swelling.? Patient reports that over the past 2 weeks he has been having pain redness and swelling of her right leg; has been on antibiotics as outpatient with no significant improvement; lately noted to have serosanguineous discharge from the wound and increased pain; mentioned that she was on cephalexin and doxycycline with no significant improvement on the p.o. antibiotics as outpatient.? Denies any fevers and chills.? Denies any chest pain or palpitations.? Reports he has low back pain-which has been chronic; denies any numbness tingling or focal weakness.? Denies any GI symptoms.? Review of all other systems is negative except mentioned above ER course: Per ER team patient noted to have right leg pain redness and swelling; concerning for cellulitis; given antibiotics.? Also had venous duplex done which showed no evidence of DVT.? Admitted for further management. hospital course: Patient was admitted for extensive right lower extremity cellulitis superimposed on chronic venous stasis. She was treated with IV vancomycin and Zosyn, there was some improvement patient still required IV antibiotics and was awaiting infectious disease evaluation considering previous complex culture results. However, patient's lysed to leave against medical advice, she was aware of the risks of doing so including . For her opiate dependence she was continued on methadone for her morbid obesity weight loss is recommended. Time Spent with Patient Time attestation: Total time spent providing and/or coordinating discharge services: Discharge coordination time: Greater than 30 minutes Quality: Safe Use of Opioids Does Pt have an Active Cancer Diagnosis on the Problem List?: No Quality: Stroke Does the patient have a stroke diagnosis?: No Physical Exam Vital Signs: Vital Signs: Last Vital Signs Temp 97.6 F 10/17/21 17:43 Pulse 76 10/17/21 17:43 Resp 18 10/17/21 17:43 BP 160/83 H 10/17/21 17:43 Pulse Ox 91 L 10/17/21 17:43 BMI result Body Mass Index 51.5 General: AO X 3, no acute distress Resp:? CTA bilateral, no accessory muscles used CVS: S1,S2,RRR GI: soft, non tender, non distended Neuro:? motor grossly intact, alert Psych: appropriate affect, appropriate insight? RLE ertyhema, edema, tenderness DS: Data Data Completed and Pending Completed studies during hospitalization [Text1]: Procedures Assistance with Respiratory Ventilation, Less than 24 Consecutive Hours, Continuous Positive Airway Pressure (09/21/20) Labs on day of discharge: Laboratory Results - last 24 hr 10/17/21 10/17/21 05:55 05:55 WBC 9.1 RBC 3.87 L Hgb 11.6 L Hct 36.5 L MCV 94.3 MCH 30.0 MCHC 31.8 RDW 14.8 Plt Count 326 MPV 9.8 Immature Gran % (Auto) 0.4 Neut % (Auto) 63.7 Lymph % (Auto) 22.9 [place] % (Auto) 5.8 Eos % (Auto) 6.4 H Baso % (Auto) 0.8 Lymph # (Auto) 2.1 [place] # (Auto) 0.5 Eos # (Auto) 0.6 H Baso # (Auto) 0.1 Abs Immat Gran (auto) 0.04 H Absolute Neuts (auto) 5.8 Absolute Nucleated RBC 0.000 Nucleated RBC % (auto) 0.0 Sodium 135 Potassium 4.1 Chloride 95 L Carbon Dioxide 31 H Anion Gap 13 BUN 9 Creatinine 0.74 Estim Creat Clear Calc 136.3 Estimated GFR > 60 Random Glucose 102 Calcium 9.0 Preliminary micro results at discharge 10/16/21 17:02 Blood Culture - Preliminary Blood - Venous No growth after 24 hours. 10/16/21 17:02 Blood Culture - Preliminary Blood - Venous No growth after 24 hours. Discharge Plan Discharge Patient Disposition: Left Against Medical Advice Discharge Diagnosis: cellulitis Referrals: Monty Russell MD [Primary Care Provider] - 1 Week Discharge Medications: No Action albuterol sulfate 90 mcg/actuation HFA aerosol inhaler 1 puff inhalation QID PRN (Reason: bronchospasm) 30 Days Qty: 18 5RF doxycycline monohydrate 100 mg tablet 100 mg PO BID 10 Days Qty: 20 0RF methadone 10 mg/mL Concentrate 130 mg PO DAILY 0RF Discharge Orders: Discharge Order (Routine); Ordered 10/18/21 Ordered By: El Goss Care Plan Goals: recovery Health Concerns: cellulitis Plan of Treatment: needs iv abx Assessment: see above Discharge Date/Time: 10/17/21 19:35
== END 2021-10-17 19:35 | disposition left against medical advice (07) | DRG 383 ==
LOC: HO.ED 16:27 → HO.EDOVER 23:38 → HO.S3 10-17 16:20
PROVIDERS: Physician Assistant; Admitting Provider Hospitalist; Emergency Provider Emergency Medicine; PCP Internal Medicine; Visit Provider Internal Medicine
DX: L03.115 Cellulitis of right lower limb (principal); I87.331 Chronic venous hypertension (idiopathic) with ulcer and inflammation of right lower extremity; M54.50 Low back pain, unspecified; F11.20 Opioid dependence, uncomplicated; F17.210 Nicotine dependence, cigarettes, uncomplicated; J45.40 Moderate persistent asthma, uncomplicated; G89.29 Other chronic pain; Z71.6 Tobacco abuse counseling; E66.01 Morbid (severe) obesity due to excess calories; Z68.43 Body mass index [BMI] 50.0-59.9, adult; Z71.3 Dietary counseling and surveillance; Z20.822 Contact with and (suspected) exposure to COVID-19; Z79.899 Other long term (current) drug therapy
CPT/HCPCS: 36415; 76882; 80048; 83605; 85025; 87040; 87635; 93971; 96361; 96365; 96366; 96367; 99285; J0690; J1650; J2543; J3370

== ENCOUNTER 2021-11-16 17:23 | Emergency (ER) | payer OTHER, SELFPAY ==
--- NOTE | ~2021-11-16 | US_ITS ---
EXAMINATION: US VENOUS ULTRASOUND WITH DOPPLER LOWER EXTREMITY, RIGHT CLINICAL INFORMATION: Edema, pain COMPARISON: 10/16/2021 DVT ultrasound TECHNIQUE: Ultrasound of the deep veins is performed from the hip to the calf with compression sonography and color and pulse Doppler assessment. Spectral analysis with color-flow imaging is performed. FINDINGS: There is normal venous compression and respiratory variation and augmented flow. The visualized common femoral vein, superficial femoral vein, profunda femoral vein, popliteal vein, and the trifurcation region shows no evidence of deep venous thrombosis. There is no significant popliteal fossa cyst. Enlarged right inguinal lymph node measuring 5.7 x 1.2 cm which maintains normal hilar architecture. If the patient's symptoms persist, followup ultrasound in 5 days 7 days might be of value to exclude proximal propagation from a non-visualized calf vein. US/US venous duplex LE RT IMPRESSION: No DVT demonstrated in the right lower extremity. Enlarged right inguinal lymph node measuring 1.2 cm short axis diameter, which maintains normal hilar architecture. Recommend correlation with any etiology for reactive lymphadenopathy and if absent consider short interval follow-up ultrasound to ensure resolution.
[2021-11-16 17:27] VITALS: BP 155/85; PULSE 101; RESP 20; TEMP 35.4; O2SAT 92; BMI 51.0
[2021-11-16 17:46] LABS: MANUAL DIFF FLAG NO
[2021-11-16 17:52] LABS: Basophils Absolute Auto 0.1 X10*3/uL (0.0-0.2); Basophils Percent Auto 0.5 % (0-2); Eosinophils Absolute Auto 1.6 X10*3/uL (0.0-0.4); Eosinophils Percent Auto 11.7 % (0-4); Hematocrit 37.4 % (37.0-47.0); Hemoglobin 11.6 g/dl (12.0-16.0); Imm Gran Abs Auto 0.05 X10*3/uL (0.00-0.03); Imm Gran Pct Auto 0.4 % (0.0-0.4); Lymphocytes Absolute Auto 3.3 X10*3/uL (1.2-4.9); Lymphocytes Percent Auto 24.7 % (20-40); Mean Corpuscular Hemoglobin 29.4 pg (27.0-33.0); Mean Corpuscular Volume 94.9 fL (80.0-98.0); Mean Platelet Volume 9.5 fL (9.4-12.3); Monocytes Absolute Auto 0.7 X10*3/uL (0.1-1.2); Monocytes Percent Auto 5.2 % (2-11); Neutrophils Absolute Auto 7.6 x10*3/uL (2.0-8.3); Neutrophils Percent Auto 57.5 % (45-73); Platelet Count 284 X10*3/uL (160-400); Red Blood Count 3.94 X10*6/uL (4.20-5.50); Red Cell Distribution Width 15.9 % (11.0-16.0); White Blood Count 13.3 X10*3/uL (4.8-10.8)
[2021-11-16 18:00] LABS: Anion Gap 10 (12-20); Blood Urea Nitrogen 10 mg/dL (9-16); Carbon Dioxide 34 mmol/L (22-29); Chloride 99 mmol/L (96-108); Creatinine Clr Calc Pharmacy 132.8; Estimated Glomerular Filt Rate > 60; Glucose Random 104 mg/dL (60-115); Sodium 139 mmol/L (135-145)
--- NOTE | 2021-11-16 20:35 | ED.SKABFB ---
HPI - Skin/Abscess/Foreign Bdy General Chief complaint: Skin/Abscess/Foreign Body <Promise HudsonMANNY - Last Filed: 11/16/21 21:16> Stated complaint: R Leg Cellulitis <Promise HudsonMANNY - Last Filed: 11/16/21 21:16> Time Seen by Provider: 11/16/21 20:21 <Promise Zimmerman MANNY Hudson - Last Filed: 11/16/21 21:16> Source: patient <Promise HudsonMANNY - Last Filed: 11/16/21 21:16> Mode of arrival: ambulatory <Promise HudsonMANNY - Last Filed: 11/16/21 21:16> Limitations: no limitations <Promise HudsonMANNY - Last Filed: 11/16/21 21:16> History of Present Illness HPI narrative: Patient presents emergency department for evaluation of reported cellulitis to her right lower extremity. She reports a history of chronic cellulitis to the right lower leg, states she was seen here just about 1 month ago and was advised to, inpatient for IV antibiotics, she stated she was not able to do that. She followed up 1 week later with the wound care center was discharged, reporting that the infection had resolved. She states that over the past couple of days she developed redness again to the right lower extremity. However her prior cellulitis number extended past the knee. At this time she reports significant pain, tenderness to touch, and a large hard reddened area to the right medial thigh just above her knee. She denies any known precipitating injury or wounds. Denies fevers, chills, chest pain, palpitations, shortness of breath, difficulty breathing, nausea vomiting, abdominal pain, weakness, numbness or tingling of the extremities. <Promise ArevaloMANNY mason - Last Filed: 11/16/21 21:16> Related Data Home medications: Home Medications Medication Instructions Recorded Confirmed methadone 10 mg/mL oral concentrate 130 mg PO DAILY 10/16/21 10/16/21 Previous Rx's Medication Instructions Recorded albuterol sulfate 90 mcg/actuation 1 puff inhalation QID PRN 09/12/20 aerosol inhaler bronchospasm 30 days #18 grams doxycycline monohydrate 100 mg 100 mg PO BID 10 days #20 tabs 12/29/20 tablet cephalexin 500 mg capsule 500 mg PO QID #40 caps 11/16/21 sulfamethoxazole 800 1 tab PO Q12H #20 tabs 11/16/21 mg-trimethoprim 160 mg tablet (Bactrim DS) <Promise Hudson CNP - Last Filed: 11/16/21 21:16> Allergies/Adverse reactions: Allergies Allergy/AdvReac Type Severity Reaction Status Date / Time No Known Allergies Allergy Verified 07/17/21 08:42 [No Known Allergies*] <Promise Hudson CNP - Last Filed: 11/16/21 21:16> Review of Systems Review of Systems: Constitutional: No No fever. No chills. No weakness. No fatigue. Eye: No swelling. No redness. ENT: No sore throat. No rhinorrhea. No nasal congestion. No sore throat. No difficulty swallowing. Skin: No rash. No itching. Erythema to right lower extremity Cardiovascular: No chest pain. No chest pressure. No palpitations. Respiratory: No shortness of breath. No cough. No sputum production. Gastrointestinal: No anorexia. No nausea. No vomiting. No diarrhea. No abdominal pain. Genitourinary: No burning micturition. No urinary frequency. No incontinence. Neurologic: No headache. No dizziness. No numbness. No tingling. Musculoskeletal: No muscle pain. No back pain. No joint pain. No stiffness. Hematologic: No bleeding. No bruising. Lymphatics: No enlarged lymph nodes. Psychiatric:No depression. No anxiety. Endocrine: No polyuria. No polydipsia. <Promise Hudson CNP - Last Filed: 11/16/21 21:16> Yes all other systems are reviewed and are negative <Promise Hudson CNP - Last Filed: 11/16/21 21:16> [facility] Past Medical History Attestation statement: The following information was validated with the patient. <Promise Hudson CNP - Last Filed: 11/16/21 21:16> Source: old records reviewed <Promise Hudson CNP - Last Filed: 11/16/21 21:16> Medical History: Medical History Asthma Chronic back pain Lumbago syndrome Methadone use <Promise Hudson CNP - Last Filed: 11/16/21 21:16> Social History Social History: Social History Household Members: Significant Other and Children Housing: Apartment Do you presently have visiting nurse or other home services: No Alcohol intake: unknown Patient Tobacco Use Status: Current everyday Tobacco user Tobacco use type: Cigarette Cigarette Packs Per Day: 1 Cigarettes Per Day: 20.0 Second Hand Smoke Exposure: No Substance Use Type: Heroin Advance Directives: No service: No Current occupational status: unemployed <Promise Hudson CNP - Last Filed: 11/16/21 21:16> Physical Exam Vital Signs: Vital Signs: Last Vital Signs Temp 97.2 F 11/16/21 20:44 Pulse 85 11/16/21 20:44 Resp 20 11/16/21 20:44 BP 137/75 11/16/21 20:44 Pulse Ox 94 11/16/21 20:44 O2 Del Method 11/16/21 20:44 BMI result Body Mass Index 51.0 Vital signs have been reviewed and appeared to be correct. Hypertensive. Heart rate normal.? Respiration rate normal. Initial temp oral temperature 95.8 degrees, checked orally 97.2? Oxygen saturation normal. <Promise Hudson CNP - Last Filed: 11/16/21 21:16> Vital Signs: Last Vital Signs Temp 97.2 F 11/16/21 20:44 Pulse 85 11/16/21 20:44 Resp 20 11/16/21 20:44 BP 137/75 11/16/21 20:44 Pulse Ox 94 11/16/21 20:44 O2 Del Method 11/16/21 20:44 BMI result Body Mass Index 51.0 <Rashid Norris MD - Last Filed: 11/16/21 22:50> Appearance: Alert.?Oriented to person, place and time. No acute distress.?Normal affect. Eyes: Pupils equal, round and reactive to light.? ENT: Pharynx normal.?? Neck: Normal inspection.? Neck supple.?? CVS: Heart sounds normal. Normal heart rate and rhythm.? Pulses normal.?? Respiratory: No respiratory distress.? Lung sounds clear to auscultation bilaterally?? Abdomen: Soft and non-tender. Skin: Skin warm and dry.? Normal skin color.? Right lower extremity circumferential erythema, firmness to palpation, dried skin, no weeping or exudate. Right medial thigh just superior to the knee with a hard erythematous palpable patch, significant tenderness on palpation Neuro: Moves all extremities spontaneously. Sensation intact bilaterally. CN II-XII intact. No focal neuro deficits. Ambulates with normal steady gait. <Promise Hudson CNP - Last Filed: 11/16/21 21:16> Course Course Course Narrative: Patient is a 41-year-old female with a past medical history of chronic cellulitis to the right lower extremity, reportedly had resolved as of 3 weeks ago. Return of right lower extremity erythema over the past few days, with concern about an additional area of redness to the upper leg. Nonpitting edema, lower extremity with erythema, induration, warm to touch. Concern for DVT, will obtain ultrasound. Initially presented mildly tachycardic, hypothermic initially with the time for all measure, on repeat was 97.2 orally. CBC, BMP, Blood cultures and lactic acid to be obtained, Cefazolin IV ordered. <Promise Hudson CNP - Last Filed: 11/16/21 21:16> Reevaluation(s) Reevaluation #1: CBC reveals leukocytosis 13.3. BMP overall unremarkable. Lactic acid and ultrasound are pending at this time. I signed out patient to Dr. Norris pending results, as patient reports that a cellulitis had completely resolved and only just returned over the past couple of days, if ultrasound is negative for DVT, would consider trialing outpatient course of cephalexin and doxycycline. Patient updated and is aware of plan of care. <Promise Hudson CNP - Last Filed: 11/16/21 21:16> Time: 21:14 <Promise Hudson CNP - Last Filed: 11/16/21 21:16> MDM - Skin/Abscess/Foreign Bdy MDM Narrative Medical decision making narrative: Patient with chronic appearing erythema to her right leg, with some scrotal erythema to the posterior medial knee and lower thigh. Patient has prior cellulitis in this leg. Patient denies fever. O blood cell count is 13. Ultrasound of the leg was done and was negative for DVT. Will start the patient on Keflex and Bactrim, encourage elevation of the legs. At this point, since the patient is afebrile, not vomiting, I believe trial of outpatient therapy is reasonable <Rashid Norris MD - Last Filed: 11/16/21 22:50> Medical Records Attestation: I reviewed the patient's medical records. <Promise Hudson CNP - Last Filed: 11/16/21 21:16> Lab Data Attestation: I reviewed the patient's lab results. <Promise Hudson CNP - Last Filed: 11/16/21 21:16> Result diagrams: : 11/16/21 17:37 11/16/21 17:37 <Promise Hudson CNP - Last Filed: 11/16/21 21:16> Labs: Lab Results 11/16/21 11/16/21 11/16/21 Range/Units 17:37 17:37 21:39 WBC 13.3 H (4.8-10.8) X10*3/uL RBC 3.94 L (4.20-5.50) X10*6/uL Hgb 11.6 L (12.0-16.0) g/dl Hct 37.4 (37.0-47.0) % MCV 94.9 (80.0-98.0) fL MCH 29.4 (27.0-33.0) pg MCHC 31.0 (31.0-35.0) g/dl RDW 15.9 (11.0-16.0) % Plt Count 284 (160-400) X10*3/uL MPV 9.5 (9.4-12.3) fL Immature Gran % (Auto) 0.4 (0.0-0.4) % Neut % (Auto) 57.5 (45-73) % Lymph % (Auto) 24.7 (20-40) % [place] % (Auto) 5.2 (2-11) % Eos % (Auto) 11.7 H (0-4) % Baso % (Auto) 0.5 (0-2) % Lymph # (Auto) 3.3 (1.2-4.9) X10*3/uL [place] # (Auto) 0.7 (0.1-1.2) X10*3/uL Eos # (Auto) 1.6 H (0.0-0.4) X10*3/uL Baso # (Auto) 0.1 (0.0-0.2) X10*3/uL Abs Immat Gran (auto) 0.05 H (0.00-0.03) X10*3/uL Absolute Neuts (auto) 7.6 (2.0-8.3) x10*3/uL Absolute Nucleated RBC 0.000 (0.0-0.012) X10*3/uL Nucleated RBC % (auto) 0.0 (0.0-0.2) /100WBC Sodium 139 (135-145) mmol/L Potassium 4.0 (3.3-5.1) mmol/L Chloride 99 (96-108) mmol/L Carbon Dioxide 34 H (22-29) mmol/L Anion Gap 10 L (12-20) BUN 10 (9-16) mg/dL Creatinine 0.76 (0.5-1.4) mg/dL Estim Creat Clear Calc 132.8 Estimated GFR > 60 Random Glucose 104 (60-115) mg/dL Lactic Acid 0.7 (0.5-2.0) mmol/L Calcium 9.0 (8.4-10.2) mg/dL <Promise Hudson, STRIKE OUT MACHINE OPERATOR - Last Filed: 11/16/21 21:16> Lab Results 11/16/21 11/16/21 11/16/21 Range/Units 17:37 17:37 21:39 WBC 13.3 H (4.8-10.8) X10*3/uL RBC 3.94 L (4.20-5.50) X10*6/uL Hgb 11.6 L (12.0-16.0) g/dl Hct 37.4 (37.0-47.0) % MCV 94.9 (80.0-98.0) fL MCH 29.4 (27.0-33.0) pg MCHC 31.0 (31.0-35.0) g/dl RDW 15.9 (11.0-16.0) % Plt Count 284 (160-400) X10*3/uL MPV 9.5 (9.4-12.3) fL Immature Gran % (Auto) 0.4 (0.0-0.4) % Neut % (Auto) 57.5 (45-73) % Lymph % (Auto) 24.7 (20-40) % [place] % (Auto) 5.2 (2-11) % Eos % (Auto) 11.7 H (0-4) % Baso % (Auto) 0.5 (0-2) % Lymph # (Auto) 3.3 (1.2-4.9) X10*3/uL [place] # (Auto) 0.7 (0.1-1.2) X10*3/uL Eos # (Auto) 1.6 H (0.0-0.4) X10*3/uL Baso # (Auto) 0.1 (0.0-0.2) X10*3/uL Abs Immat Gran (auto) 0.05 H (0.00-0.03) X10*3/uL Absolute Neuts (auto) 7.6 (2.0-8.3) x10*3/uL Absolute Nucleated RBC 0.000 (0.0-0.012) X10*3/uL Nucleated RBC % (auto) 0.0 (0.0-0.2) /100WBC Sodium 139 (135-145) mmol/L Potassium 4.0 (3.3-5.1) mmol/L Chloride 99 (96-108) mmol/L Carbon Dioxide 34 H (22-29) mmol/L Anion Gap 10 L (12-20) BUN 10 (9-16) mg/dL Creatinine 0.76 (0.5-1.4) mg/dL Estim Creat Clear Calc 132.8 Estimated GFR > 60 Random Glucose 104 (60-115) mg/dL Lactic Acid 0.7 (0.5-2.0) mmol/L Calcium 9.0 (8.4-10.2) mg/dL <Rashid Norris MD - Last Filed: 11/16/21 22:50> Imaging Data Venous US: Radiologist's impression: IMPRESSION: No DVT demonstrated in the right lower extremity. ? Enlarged right inguinal lymph node measuring 1.2 cm short axis diameter, which maintains normal hilar architecture. Recommend correlation with any etiology for reactive lymphadenopathy and if absent consider short interval follow-up ultrasound to ensure resolution. <Rashid Norris MD - Last Filed: 11/16/21 22:50> Discharge Plan Discharge Clinical Impression: Cellulitis, leg <Promise Hudson CNP - Last Filed: 11/16/21 21:16> Patient Disposition: Still a Patient <Promise Hudson CNP - Last Filed: 11/16/21 21:16> Instructions: Cellulitis (ED) <Promise Hudson CNP - Last Filed: 11/16/21 21:16> Additional Instructions: Start the antibiotics as prescribed. Follow-up with primary care physician in 3-4 days for re-evaluation. Return for any new or worsened symptoms such as fever, increasing redness or swelling to your leg. Try to keep her legs elevated for the next 4-5 days as often as possible <Promise Hudson CNP - Last Filed: 11/16/21 21:16> Prescriptions: New cephalexin 500 mg capsule 500 mg PO QID Qty: 40 0RF sulfamethoxazole-trimethoprim [Bactrim DS] 800-160 mg tablet 1 tab PO Q12H Qty: 20 0RF No Action albuterol sulfate 90 mcg/actuation HFA aerosol inhaler 1 puff inhalation QID PRN (Reason: bronchospasm) 30 Days Qty: 18 5RF doxycycline monohydrate 100 mg tablet 100 mg PO BID 10 Days Qty: 20 0RF methadone 10 mg/mL Concentrate 130 mg PO DAILY <Promise Hudson CNP - Last Filed: 11/16/21 21:16> Interventions: LWBS Worksheet Last Done: 11/16/21 20:08 <Promise Hudson CNP - Last Filed: 11/16/21 21:16>
[2021-11-16 20:44] VITALS: BP 137/75; PULSE 85; RESP 20; TEMP 36.2; O2SAT 94
[2021-11-16 21:58] LABS: Lactic Acid 0.7 mmol/L (0.5-2.0)
[2021-11-16] MEDS: Sulfamethox/Trimeth 800/160 TABLET 1 TAB PO (23:12)
== END 2021-11-17 02:00 | disposition home or self-care (01) ==
PROVIDERS: Emergency Medicine; Nurse Practitioner Family; Emergency Provider Emergency Medicine; PCP Internal Medicine
DX: L03.115 Cellulitis of right lower limb (principal); M79.604 Pain in right leg; J45.909 Unspecified asthma, uncomplicated
CPT/HCPCS: 36415; 80048; 83605; 85025; 87040; 93971; 96365; 99282; 99284; J0690

== ENCOUNTER 2023-10-22 08:37 | Emergency (ER) | payer OTHER, SELFPAY ==
[2023-10-22 08:41] VITALS: BP 158/107; PULSE 106; O2SAT 94
[2023-10-22 08:45] VITALS: BP 150/91; PULSE 100; RESP 18; TEMP 36.6; O2SAT 93; BMI 51.5
--- NOTE | 2023-10-22 08:54 | ED_ITS ---
HPI - Overdose General Chief Complaint: Overdose Stated Complaint: HEROIN USE Time Seen by Provider: 10/22/23 08:39 Source: patient and EMS Mode of arrival: ambulatory Limitations: no limitations History of Present Illness HPI Narrative: 43 yo male with asthma, chronic back pain, on methadone 120mg daily here with c/o accidental overdose. She sniffed a bag this AM has been having worsening back pain no new trauma has been trying to get into a doctor for a while but has well sense and could not get a PCP. She has not used in months and does not use IVDA. She overdosed no trauma and friend gave IN narcan. Aline does not want detox or SUDE evaluation. complaint: accidental overdose Onset (ago): minute(s) (just [employer]) How Overdose Was Discovered: family/friend present at time Context: Accidental Overdose: other (worsening back pain) Treatments Prior to Arrival: narcan (4mg IN by friend) Related Data Home Medications ?Medication ?Instructions ?Recorded ?Confirmed methadone 10 mg/mL oral concentrate 130 mg PO DAILY 10/16/21 10/16/21 Previous Rx's ?Medication ?Instructions ?Recorded albuterol sulfate 90 mcg/actuation 1 puff inhalation QID PRN 09/12/20 aerosol inhaler bronchospasm 30 days #18 grams doxycycline monohydrate 100 mg 100 mg PO BID 10 days #20 tabs 12/29/20 tablet cephalexin 500 mg capsule 500 mg PO QID #40 caps 11/16/21 sulfamethoxazole 800 1 tab PO Q12H #20 tabs 11/16/21 mg-trimethoprim 160 mg tablet (Bactrim DS) Allergies Allergy/AdvReac Type Severity Reaction Status Date / Time No Known Allergies Allergy Verified 10/22/23 08:47 [No Known Allergies*] Review of Systems Review of Systems: Constitutional : No Fever, No Chills, No Fatigue ENT/Mouth : No sore throat, No Rhinorrhea Eyes: No Eye Pain, No Swelling, No Redness Cardiovascular : No Chest Pain, No SOB, No Dyspnea on Exertion Respiratory : No Cough, No Sputum Gastrointestinal : No Nausea, No Vomiting, No Diarrhea, No abdominal Pain Genitourinary : No Dysuria, No Urinary Frequency, No Hematuria, Musculoskeletal : No joint pain, No Myalgias, No Joint Swelling, pos back pain Skin : No Skin Lesions, No rash Neuro : No Weakness, No Numbness, No Dizziness, no Headache Psych : No Anxiety/Panic, No Depression All other systems reviewed and are negative [facility] Past Medical History Attestation statement: The following information was validated with the patient. Source: old records reviewed Medical History Asthma Lumbago syndrome Chronic back pain Methadone use Social History Social History Household Members: Significant Other and Children Housing: Apartment Do you presently have visiting nurse or other home services: No Alcohol intake: unknown Patient Tobacco Use Status: Current everyday Tobacco user Tobacco use type: Cigarette Cigarette Packs Per Day: 1 Cigarettes Per Day: 20.0 Smoked in Last 30 Days: Yes Second Hand Smoke Exposure: No Use of substances other than those prescribed or required for medical reasons: Yes Substance Use Type: Heroin Substance Use Frequency: Occasionally Advance Directives: No Advance Directives Information Provided: No service: No Current occupational status: unemployed Physical Exam Vital Signs: Vital Signs: Last Vital Signs Temp 97.9 F 10/22/23 11:29 Pulse 86 10/22/23 11:29 Resp 17 10/22/23 11:29 BP 148/86 H 10/22/23 11:29 Pulse Ox 95 10/22/23 11:29 O2 Del Method Room Air 10/22/23 11:29 BMI result Body Mass Index 51.5 Appearance: Alert. Oriented X3. No acute distress. Eyes: Pupils equal, round and reactive to light. ENT: Pharynx normal. Neck: Normal inspection. Neck supple. CVS: Normal heart rate and rhythm. Pulses normal. Respiratory: No respiratory distress. Breath sounds normal. Abdomen: Soft and nontender. Skin: Skin warm and dry. Normal skin color. Normal skin turgor. Extremities: No lower extremity edema. No calf ttp Neuro: Oriented X 3. No motor deficit. No sensory deficit. Course Course Course Narrative: observed no need for repeat narcan stable for DC Medications Administered Discontinued Medications Generic Name Dose Route Start Last Admin Trade Name Freq PRN Reason Stop Dose Admin Naloxone HCl 8 mg 10/22/23 08:49 10/22/23 11:28 Naloxone Hcl Nasal Take Home 4 Mg [place] NOSTRILALT 10/22/23 08:50 8 mg ONCE ONE Administration Medical Decision Making Medical Decision Making MDM Narrative: 43 yo male with asthma, chronic back pain, on methadone 120mg daily here with c/o worsening low back pain and sniffed heroin on top of it at this time no cauda equina symptoms no red flags no SI. She does not want SUDE evaluation. Will give narcan to go and DC home after observation Differential Diagnosis Differential Diagnoses: The differential diagnosis associated with the presentation includes back pain, opiate use disorder Admission/Observation Consideration of admission/observation: Escalation of care including admission/observation considered observe until cleared Independent Historian Clinical information obtained from an independent historian. History obtained from or confirmed by: EMS External Record Review External record reviewed: Inpatient record Prescription Management I considered prescription management with: Other Discharge Plan Discharge Clinical Impression: Drug overdose Patient Disposition: Home, Self-Care Instructions: Adult Overdose (ED) Additional Instructions: carry narcan with you at all times. follow up with primary care doctor as planned. return for any worsening symptoms or concerns. Prescriptions: No Action albuterol sulfate 90 mcg/actuation HFA aerosol inhaler 1 puff inhalation QID PRN (Reason: bronchospasm) 30 Days Qty: 18 5RF doxycycline monohydrate 100 mg tablet 100 mg PO BID 10 Days Qty: 20 0RF methadone 10 mg/mL Concentrate 130 mg PO DAILY cephalexin 500 mg capsule 500 mg PO QID Qty: 40 0RF sulfamethoxazole-trimethoprim [Bactrim DS] 800-160 mg tablet 1 tab PO Q12H Qty: 20 0RF Interventions: ED Discharge Assessment Last Done: 10/22/23 11:29 Discharge Date/Time: 10/22/23 11:30 Print Language: Irish
[2023-10-22 10:21] VITALS: BP 148/86; PULSE 86; RESP 17; TEMP 36.6; O2SAT 95
[2023-10-22] MEDS: Naloxone HCl Nasal TAKE HOME 4 MG SPRAY 8 MG NOSTRILALT (11:28)
[2023-10-22 11:29] VITALS: BP 148/86; PULSE 86; RESP 17; TEMP 36.6; O2SAT 95
== END 2023-10-22 11:30 | disposition home or self-care (01) ==
PROVIDERS: Emergency Provider Emergency Medicine; PCP Internal Medicine
DX: T65.91XA Toxic effect of unspecified substance, accidental (unintentional), initial encounter (principal); Y92.9 Unspecified place or not applicable; M54.9 Dorsalgia, unspecified
CPT/HCPCS: 99284

== ENCOUNTER 2024-11-16 09:33 | Outpatient (REF) | payer OTHER, SELFPAY ==
[2024-11-16 13:38] LABS: Estimated Average Glucose 137 mg/dL; Hemoglobin A1c % 6.4 % (<6.0)
[2024-11-16 13:48] LABS: Creatinine Urine 341.88 mg/dL; Microalbum/Creatinine Ratio Ur 3.8 ug/mg cr (<30)
[2024-11-16 13:59] LABS: Alanine Aminotransferase 17 U/L (0-31); Albumin Level 4.5 g/dL (3.5-5.0); Alkaline Phosphatase 94 U/L (39-117); Anion Gap 13 (12-20); Aspartate Amino Transferase 14 U/L (5-31); Bilirubin Total 0.3 mg/dL (0.0-1.0); Blood Urea Nitrogen 20 mg/dL (9-16); Calcium 9.7 mg/dL (8.4-10.2); Carbon Dioxide 31 mmol/L (22-29); Chloride 100 mmol/L (96-108); Cholesterol 169 mg/dL (<200); Estimated Glomerular Filt Rate > 60; Glucose Random 113 mg/dL (60-115); HDL Cholesterol 42 mg/dL (>40); LDL Cholesterol Calculated 102 mg/dL (<100); Potassium 4.6 mmol/L (3.3-5.1); Sodium 139 mmol/L (135-145); Total Protein 7.5 g/dL (6.5-8.0); Triglycerides 128 mg/dL (<150)
[2024-11-16 14:14] LABS: Thyroid Stimulating Hormone 1.91 uIU/mL (0.32-4.0)
== END 2024-11-16 09:34 | disposition home or self-care (01) ==
LOC: HO.10HDL 09:33
PROVIDERS: Visit Provider Internal Medicine
DX: E11.9 Type 2 diabetes mellitus without complications (principal); E66.01 Morbid (severe) obesity due to excess calories; F33.41 Major depressive disorder, recurrent, in partial remission; G47.33 Obstructive sleep apnea (adult) (pediatric); M51.16 Intervertebral disc disorders with radiculopathy, lumbar region; Z72.0 Tobacco use
CPT/HCPCS: 36415; 80053; 80061; 82043; 82570; 83036; 84443